=== PATIENT | female | born 1930 | race Caucasian/White ===

== ENCOUNTER 2016-12-18 07:49 | Emergency (ER) | payer MEDICARE, BC ==
--- NOTE | 2016-12-18 08:49 | EDM.PDOC ---
ED HPI GENERAL MEDICAL PROBLEM - General Chief Complaint: General Stated Complaint: BY AMBULANCE Time Seen by Provider: 12/18/16 08:20 Source of Information: Reports: Patient, RN, RN Notes Reviewed History Limitations: Reports: No Limitations - History of Present Illness INITIAL COMMENTS - FREE TEXT/NARRATIVE: Pt presents to ER per [facility] with c/o generalized weakness. She states she was seen in the clinic on Wednesday by Amanda Stubbs NP, and was dx with a UTI, was placed on Levaquin at that time. She states the past few days her arms and legs have felt like "rubber", heavy and weak. She states she had a near fall last night on her way to the bathroom, she states she caught herself and did not have any injuries. She states she has an extensive cardiac hx. She denies fever , chills, N/V, chest pain, or sob. She states she had diarrhea a few days ago, for one day, which has since resolved. Pt states she lives at [facility]. Onset: Gradual Location: Reports: Generalized Severity: Moderate Improves with: Reports: None Worsens with: Reports: None Associated Symptoms: Reports: Weakness - Related Data Allergies Allergy/AdvReac Type Severity Reaction Status Date / Time JUDSON Inhibitors Allergy Anaphylactic Verified 12/18/16 07:57 Shock Home Meds: Home Meds Clopidogrel Bisulfate [Clopidogrel] 75 mg PO DAILY 10/05/15 [History] Imiquimod [[place] 5% Crm] 1 applic TOP DAILY 10/05/15 [History] Insulin Detemir [Levemir Flextouch] 22 units SQ BID 10/05/15 [History] Isosorbide Mononitrate [Imdur] 60 mg PO DAILY 10/05/15 [History] Latanoprost [Xalatan 0.005% Ophth Soln] 2 drop EYEBOTH DAILY 10/05/15 [History] Metoprolol Succinate [Toprol XL 50mg] 50 mg PO DAILY 10/05/15 [History] Simvastatin [Simvastatin] 40 mg PO DAILY 10/05/15 [History] amLODIPine [Norvasc] 5 mg PO DAILY 10/05/15 [History] glipiZIDE [Glipizide Xl] 10 mg PO BID 10/05/15 [History] Aspirin [Kia Chewable] 81 mg PO 12/18/16 [History] Calcium Carbonate/Vitamin D3 [Calcium 250+D] 1 each PO DAILY 12/18/16 [History] Cranberry Extract [Cranberry] 1,000 mg PO DAILY 12/18/16 [History] FA/Vit C/E/Zinc/Copper/Lut/Anup [Ocuvel Capsule] 1 cap PO DAILY 12/18/16 [History ] Fish Oil/[place]-3 Fatty Acids [Fish Oil] 1 each PO 12/18/16 [History] Levofloxacin [Levofloxacin] 250 mg PO DAILY 12/18/16 [History] Triamcinolone Acetonide [Triamcinolone Acetonide 0.1% Crm] 1 gm TOP BID [History] Past Medical History HEENT History: Reports: Glaucoma Cardiovascular History: Reports: High Cholesterol, Hypertension Endocrine/Metabolic History: Reports: Diabetes, Type II Oncologic (Cancer) History: Reports: Basal Cell Carcinoma Dermatologic History: Reports: Other (See Below) - Past Surgical History GI Surgical History: Reports: Appendectomy, Other (See Below) Musculoskeletal Surgical History: Reports: Knee Replacement Social & Family History - Family History Family Medical History: Noncontributory - Tobacco Use Smoking Status *Q: Never Smoker Second Hand Smoke Exposure: No - Caffeine Use Caffeine Use: Reports: None - Recreational Drug Use Recreational Drug Use: No ED ROS GENERAL - Review of Systems Review Of Systems: ROS reveals no pertinent complaints other than HPI. ED EXAM, GENERAL - Physical Exam Exam: See Below Exam Limited By: No Limitations General Appearance: Alert, WD/WN, No Apparent Distress Eye Exam: Bilateral Eye: Normal Inspection Ears: Normal External Exam, Hearing Grossly Normal Nose: Normal Inspection Throat/Mouth: Normal Inspection, Normal Voice, No Airway Compromise Head: Atraumatic, Normocephalic Neck: Normal Inspection, Supple, Non-Tender, Full Range of Motion Respiratory/Chest: No Respiratory Distress, No Accessory Muscle Use, Chest Non- Tender, Crackles (RLL) Cardiovascular: Normal Peripheral Pulses, Regular Rate, Rhythm GI/Abdominal: Normal Bowel Sounds, Soft, Non-Tender, No Organomegaly, No Distention, No Abnormal Bruit, No Mass (Female) Exam: Deferred Rectal (Female) Exam: Deferred Back Exam: Normal Inspection, Full Range of Motion Extremities: Normal Inspection, Normal Range of Motion, Non-Tender, No Pedal Edema, Normal Capillary Refill Neurological: Alert, Oriented, Normal Cognition, No Motor/Sensory Deficits Psychiatric: Normal Affect, Normal Mood Skin Exam: Warm, Dry, Intact, Normal Color, No Rash Lymphatic: No Adenopathy EKG INTERPRETATION EKG Date: 12/18/16 Time: 08:28 Rhythm: NSR (first degree AV block, PVC's) Rate (Beats/Min): 71 [place]: Normal P-Wave: Present QRS: Normal ST-T: Normal QT: Normal Comparison: NA - No Prior EKG Course - Vital Signs Last Recorded V/S: Last Vital Signs Temp 98.1 F 12/18/16 08:00 Pulse 75 12/18/16 08:00 Resp 18 12/18/16 08:00 BP 175/63 H 12/18/16 08:00 Pulse Ox 99 12/18/16 08:00 - Orders/Labs/Meds Orders: Active Orders 24 hr Category Date Time Status Blood Glucose Check, Bedside [RC] ONETIME Care 12/18/16 07:59 Active EKG Documentation Completion [RC] STAT Care 12/18/16 08:25 Active CULTURE URINE [RM] Stat Lab 12/18/16 10:39 Ordered UA W/MICROSCOPIC [URIN] Stat Lab 12/18/16 10:25 Results Labs: Laboratory Tests 12/18/16 12/18/16 12/18/16 Range/Units 08:07 08:27 08:27 WBC 9.4 (5.0-10.0) 10^3/uL RBC 3.42 L (4.2-5.4) 10^6/uL Hgb 10.9 L (12.0-16.0) g/dL Hct 32.5 L (37.0-47.0) % MCV 95.0 (80-100) fL MCH 31.9 (27.0-34.0) pg MCHC 33.5 (33.0-35.0) g/dL Plt Count 256 (150-450) 10^3/uL Neut % (Auto) 64.7 (42.2-75.2) % Lymph % (Auto) 25.7 (20.5-50.1) % [place] % (Auto) 8.5 H (2-8) % Eos % (Auto) 0.7 L (1.0-3.0) % Baso % (Auto) 0.4 (0.0-1.0) % Sodium 139 (135-145) mmol/L Potassium 3.8 (3.6-5.0) mmol/L Chloride 104 (101-111) mmol/L Carbon Dioxide 23.0 (21.0-31.0) mmol/L Anion Gap 15.8 BUN 26 H (7-18) mg/dL Creatinine 1.3 (0.6-1.3) mg/dL Est Cr Clr Drug Dosing TNP Estimated GFR (MDRD) 39 BUN/Creatinine Ratio 20.00 Glucose 162 H (74-105) mg/dL POC Glucose 153 H (83-110) mg/dl Calcium 9.4 (8.4-10.2) mg/dl Total Bilirubin 0.6 (0.2-1.0) mg/dL AST 20 (10-42) IU/L ALT 15 (10-60) IU/L Alkaline Phosphatase 47 (42-121) IU/L Troponin I 0.03 H* (0.00-0.02) ng/ml B-Natriuretic Peptide (0-100) pg/ml Total Protein 7.3 (6.7-8.2) g/dl Albumin 3.7 (3.2-5.5) g/dl Globulin 3.6 Albumin/Globulin Ratio 1.03 Urine Color (YELLOW) Urine Appearance (CLEAR) Urine pH (5.0-9.0) Ur Specific [place] (1.005-1.030) Urine Protein (NEGATIVE) Urine Glucose (UA) (NEGATIVE) Urine Ketones (NEGATIVE) Urine Occult Blood (NEGATIVE) Urine Nitrite (NEGATIVE) Urine Bilirubin (NEGATIVE) Urine Urobilinogen (0.2-1.0) mg/dL Ur Leukocyte Esterase (NEGATIVE) 12/18/16 12/18/16 Range/Units 08:27 10:25 WBC (5.0-10.0) 10^3/uL RBC (4.2-5.4) 10^6/uL Hgb (12.0-16.0) g/dL Hct (37.0-47.0) % MCV (80-100) fL MCH (27.0-34.0) pg MCHC (33.0-35.0) g/dL Plt Count (150-450) 10^3/uL Neut % (Auto) (42.2-75.2) % Lymph % (Auto) (20.5-50.1) % [place] % (Auto) (2-8) % Eos % (Auto) (1.0-3.0) % Baso % (Auto) (0.0-1.0) % Sodium (135-145) mmol/L Potassium (3.6-5.0) mmol/L Chloride (101-111) mmol/L Carbon Dioxide (21.0-31.0) mmol/L Anion Gap BUN (7-18) mg/dL Creatinine (0.6-1.3) mg/dL Est Cr Clr Drug Dosing Estimated GFR (MDRD) BUN/Creatinine Ratio Glucose (74-105) mg/dL POC Glucose (83-110) mg/dl Calcium (8.4-10.2) mg/dl Total Bilirubin (0.2-1.0) mg/dL AST (10-42) IU/L ALT (10-60) IU/L Alkaline Phosphatase (42-121) IU/L Troponin I (0.00-0.02) ng/ml B-Natriuretic Peptide 161 H (0-100) pg/ml Total Protein (6.7-8.2) g/dl Albumin (3.2-5.5) g/dl Globulin Albumin/Globulin Ratio Urine Color Yellow (YELLOW) Urine Appearance Slightly cloudy (CLEAR) Urine pH 5.5 (5.0-9.0) Ur Specific [place] 1.015 (1.005-1.030) Urine Protein 30 H (NEGATIVE) Urine Glucose (UA) Negative (NEGATIVE) Urine Ketones Negative (NEGATIVE) Urine Occult Blood Trace-lysed H (NEGATIVE) Urine Nitrite Negative (NEGATIVE) Urine Bilirubin Negative (NEGATIVE) Urine Urobilinogen 0.2 (0.2-1.0) mg/dL Ur Leukocyte Esterase Moderate H (NEGATIVE) - Radiology Interpretation Free Text/Narrative:: chest xray: No acute findings See rad report Departure - Departure Time of Disposition: 10:50 Disposition: Home, Self-Care 01 Condition: Fair Clinical Impression: UTI, Urinary tract infectious disease, Generalized weakness - Discharge Information Instructions: Urinary Tract Infection, Adult, [id number], Weakness, Easy-to- Read Forms: ED Department Discharge Additional Instructions: Follow up with Amanda Stubbs, or at your Primary care facility on Wednesday, possibly may need to follow up with cardiology. Rest STOP taking the Levaquin Augmentin 500mg orally twice daily for 10 days. Drink plenty of water. - My Orders Last 24 Hours: My Active Orders 12/18/16 07:59 Blood Glucose Check, Bedside [RC] ONETIME 12/18/16 08:25 EKG Documentation Completion [RC] STAT 12/18/16 10:25 UA W/MICROSCOPIC [URIN] Stat 12/18/16 10:39 CULTURE URINE [RM] Stat - Assessment/Plan Last 24 Hours: My Active Orders 12/18/16 07:59 Blood Glucose Check, Bedside [RC] ONETIME 12/18/16 08:25 EKG Documentation Completion [RC] STAT 12/18/16 10:25 UA W/MICROSCOPIC [URIN] Stat 12/18/16 10:39 CULTURE URINE [RM] Stat
[2016-12-18 08:55] LABS: CHLORIDE,CL 104 mmol/L (101-111); SODIUM,NA 139 mmol/L (135-145)
[2016-12-18 09:17] VITALS: BP 175/63
--- NOTE | 2016-12-18 09:48 | CR ---
Clinical history: 86-year-old female with generalized weakness. Interpretation: Osteopenia and dorsolumbar scoliosis. Calcifications arch of the aorta. Normal cardiac silhouette without cephalization of vascular flow, signs of alveolar edema or dependen t pleural fluid accumulation (old pleural scarring posteriorly left base). No lung mass or hilar lymphadenopathy. No focal lobar pneumonia. No atelectasis/collapse. No pneumothorax. CONCLUSION: No acute cardiopulmonary abnormality.
--- NOTE | 2016-12-21 08:56 | EKG ---
12/18/2016- REJI LINDSAY - A 12-lead EKG shows normal sinus rhythm with a first-degree AV block and ventricular premature complex, AL interval of 264, QTc 448. No significant ST elevation or ST depression noted on this 12-lead EKG. [facility] /[id number]
== END 2016-12-18 11:19 | disposition home or self-care (01) ==
LOC: DL.ED 07:49
DX: N39.0 Urinary tract infection, site not specified (principal); I10 Essential (primary) hypertension; E11.9 Type 2 diabetes mellitus without complications; Z79.4 Long term (current) use of insulin; Z79.899 Other long term (current) drug therapy; Z79.82 Long term (current) use of aspirin
CPT/HCPCS: 36415; 71020; 80053; 81001; 82962; 83880; 84484; 85025; 87086; 93005; 93010; 99284; 99285

== ENCOUNTER 2016-12-24 10:23 | Observation (INO) | payer MEDICARE, BC ==
--- NOTE | 2016-12-24 11:04 | CR ---
Clinical history: 86-year-old female chest pain. Interpretation: Chronic rotator cuff damage right shoulder and severe arthritic changes, clavicular and glenohumeral joints both shoulders. Scoliosis multilevel disc disease and chronic arthritic changes of the spine. No acute cardiopulmonary abnormality (calcification arch of the aorta). Normal cardiac silhouette without cephalization of vascular flow, signs of alveolar edema or dependen t pleural effusion. No new lung mass, hilar lymphadenopathy or focal lobar pneumonia since 18 December chest film. No atelectasis/collapse. No pneumothorax. CONCLUSION: No acute cardiopulmonary abnormality.
--- NOTE | 2016-12-24 11:19 | EDM.PDOC ---
ED HPI GENERAL MEDICAL PROBLEM - General Chief Complaint: General Stated Complaint: CAN'T STAND ON LEGS Time Seen by Provider: 12/24/16 10:45 Source of Information: Reports: Patient, Family, RN, RN Notes Reviewed History Limitations: Reports: No Limitations - History of Present Illness INITIAL COMMENTS - FREE TEXT/NARRATIVE: Pt presents to the ER with a family member stating that she can no longer be in her assistive living alone. She states that she has progressively gotten weaker over time. Her family member states that she came to help her some and she is also unable to help her and get her to the bathroom. She states they have begun the process to put her into the [facility] in [place]. Onset: Gradual Duration: Chronic, Getting Worse Location: Reports: Other (generalized weakness) Severity: Moderate Associated Symptoms: Reports: Weakness - Related Data Allergies Allergy/AdvReac Type Severity Reaction Status Date / Time JUDSON Inhibitors Allergy Anaphylactic Verified 12/24/16 13:15 Shock Home Meds: Home Meds Insulin Detemir [Levemir Flextouch] 22 units SQ BID 10/05/15 [History] Isosorbide Mononitrate [Imdur] 60 mg PO DAILY 10/05/15 [History] Latanoprost [Xalatan 0.005% Ophth Soln] 1 drop EYEBOTH DAILY 10/05/15 [History] Metoprolol Succinate [Toprol XL 50mg] 50 mg PO DAILY 10/05/15 [History] amLODIPine [Norvasc] 5 mg PO DAILY 10/05/15 [History] glipiZIDE [Glipizide Xl] 10 mg PO BIDMEALS 10/05/15 [History] Aspirin [Kia Chewable] 81 mg PO DAILY 12/18/16 [History] Calcium Carbonate/Vitamin D3 [Calcium 250+D] 2 tab PO BIDMEALS 12/18/16 [History ] Cranberry Extract [Cranberry] 500 mg PO BIDMEALS 12/18/16 [History] FA/Vit C/E/Zinc/Copper/Lut/Anup [Ocuvel Capsule] 1 cap PO DAILY 12/18/16 [History ] Triamcinolone Acetonide [Triamcinolone Acetonide 0.1% Crm] 1 gm TOP DAILY [History] Past Medical History HEENT History: Reports: Glaucoma Cardiovascular History: Reports: High Cholesterol, Hypertension Musculoskeletal History: Reports: Arthritis Endocrine/Metabolic History: Reports: Diabetes, Type II Oncologic (Cancer) History: Reports: Basal Cell Carcinoma Dermatologic History: Reports: Other (See Below) - Past Surgical History GI Surgical History: Reports: Appendectomy Musculoskeletal Surgical History: Reports: Knee Replacement Social & Family History - Family History Family Medical History: Noncontributory - Tobacco Use Smoking Status *Q: Never Smoker Second Hand Smoke Exposure: No - Caffeine Use Caffeine Use: Reports: None - Recreational Drug Use Recreational Drug Use: No ED ROS GENERAL - Review of Systems Review Of Systems: ROS reveals no pertinent complaints other than HPI. ED EXAM, GENERAL - Physical Exam Exam: See Below Exam Limited By: No Limitations General Appearance: Alert, WD/WN, No Apparent Distress Eye Exam: Bilateral Eye: Normal Inspection Ears: Normal External Exam, Hearing Grossly Normal Nose: Normal Inspection Throat/Mouth: Normal Inspection, Normal Voice, No Airway Compromise Head: Atraumatic, Normocephalic Neck: Normal Inspection, Supple, Non-Tender, Full Range of Motion Respiratory/Chest: No Respiratory Distress, Lungs Clear, Normal Breath Sounds, No Accessory Muscle Use, Chest Non-Tender Cardiovascular: Normal Peripheral Pulses, Irregularly Irregular Peripheral Pulses: 2+: Radial (L), Radial (R) GI/Abdominal: Normal Bowel Sounds, Soft, Non-Tender (Female) Exam: Deferred Rectal (Female) Exam: Deferred Back Exam: Normal Inspection, Full Range of Motion Extremities: Normal Inspection, No Pedal Edema, Limited Range of Motion Neurological: Alert, Oriented, Normal Cognition. No: Normal Gait Psychiatric: Normal Affect, Normal Mood Skin Exam: Warm, Dry, Intact, Normal Color Lymphatic: No Adenopathy EKG INTERPRETATION EKG Date: 12/24/16 Time: 10:45 Rhythm: Other (Sinus rhythm with first degree AV block, LBBB) Rate (Beats/Min): 70 Comparison: No Change Course - Vital Signs Last Recorded V/S: Last Vital Signs Temp 97.9 F 12/25/16 07:00 Pulse 63 12/25/16 08:35 Resp 18 12/25/16 07:00 BP 142/42 H 12/25/16 08:35 Pulse Ox 99 12/25/16 07:00 - Orders/Labs/Meds Orders: Medication Orders Acetaminophen (Tylenol) 650 mg PO Q4H PRN PRN Reason: Pain (Mild 1-3)/fever Amoxicillin/Clavulanate Potassium (Augmentin 875 Mg/125 Mg) 1 tab PO Q12HR [facility] Docusate Sodium (Colace) 100 mg PO BID PRN PRN Reason: Constipation Fluticasone Propionate (Flonase) 0.3 gm NASBOTH DAILY [facility] Glipizide (Glucotrol Xl) 5 mg PO BIDMEALS [facility] Last Admin: 12/25/16 08:36 Dose: 5 mg Admin: 12/24/16 18:26 Dose: 5 mg Insulin Aspart (Novolog) 0 unit SUBCUT QIDACANDBED [facility] PRN Reason: Protocol Last Admin: 12/25/16 08:32 Dose: Not Given Admin: 12/24/16 21:45 Dose: 1 units Admin: 12/24/16 18:26 Dose: 2 units Insulin Detemir (Levemir) 22 unit SUBCUT BID [facility] Last Admin: 12/25/16 08:36 Dose: 22 units Admin: 12/24/16 21:42 Dose: 22 units Isosorbide Mononitrate (Imdur) 60 mg PO DAILY [facility] Last Admin: 12/25/16 08:36 Dose: 60 mg Latanoprost (Xalatan 0.005% Oph Soln) 0 ml EYEBOTH DAILY [facility] Last Admin: 12/25/16 08:36 Dose: 1 drop Metoprolol Succinate (Toprol Xl) 50 mg PO DAILY [facility] Last Admin: 12/25/16 08:35 Dose: 50 mg Multivitamins/Minerals (I-Lanre) 1 each PO DAILY [facility] Last Admin: 12/25/16 08:35 Dose: 1 each Ondansetron HCl (Zofran Odt) 4 mg PO Q6H PRN PRN Reason: nausea, able to take PO Polyethylene Glycol (Miralax) 17 gm PO DAILY PRN PRN Reason: Constipation Labs: Laboratory Tests 12/24/16 12/24/16 12/24/16 Range/Units 09:22 09:22 10:38 WBC 9.3 (5.0-10.0) 10^3/uL RBC 3.42 L (4.2-5.4) 10^6/uL Hgb 10.8 L (12.0-16.0) g/dL Hct 32.9 L (37.0-47.0) % MCV 96.2 (80-100) fL MCH 31.6 (27.0-34.0) pg MCHC 32.8 L (33.0-35.0) g/dL Plt Count 269 (150-450) 10^3/uL Neut % (Auto) 67.2 (42.2-75.2) % Lymph % (Auto) 23.6 (20.5-50.1) % [place] % (Auto) 8.0 (2-8) % Eos % (Auto) 0.8 L (1.0-3.0) % Baso % (Auto) 0.4 (0.0-1.0) % Percent Retic (0.5-1.5) % Sodium (135-145) mmol/L Potassium (3.6-5.0) mmol/L Chloride (101-111) mmol/L Carbon Dioxide (21.0-31.0) mmol/L Anion Gap BUN (7-18) mg/dL Creatinine (0.6-1.3) mg/dL Est Cr Clr Drug Dosing mL/min Estimated GFR (MDRD) BUN/Creatinine Ratio Glucose (74-105) mg/dL Calcium (8.4-10.2) mg/dl Phosphorus 3.8 (2.5-4.6) mg/dL Magnesium 2.0 (1.8-2.5) mg/dL Total Bilirubin (0.2-1.0) mg/dL AST (10-42) IU/L ALT (10-60) IU/L Alkaline Phosphatase (42-121) IU/L Troponin I (0.00-0.02) ng/ml B-Natriuretic Peptide (0-100) pg/ml Total Protein (6.7-8.2) g/dl Albumin (3.2-5.5) g/dl Globulin Albumin/Globulin Ratio Vitamin B12 (180-914) pg/mL Folate ng/mL Urine Color (YELLOW) Urine Appearance (CLEAR) Urine pH (5.0-9.0) Ur Specific [place] (1.005-1.030) Urine Protein (NEGATIVE) Urine Glucose (UA) (NEGATIVE) Urine Ketones (NEGATIVE) Urine Occult Blood (NEGATIVE) Urine Nitrite (NEGATIVE) Urine Bilirubin (NEGATIVE) Urine Urobilinogen (0.2-1.0) mg/dL Ur Leukocyte Esterase (NEGATIVE) Urine RBC /HPF Urine WBC (0-5/HPF) /HPF Ur Epithelial Cells /HPF Urine Bacteria (0-FEW/HPF) /HPF Hyaline Casts /LPF Urine Mucus /LPF 12/24/16 12/24/16 12/24/16 Range/Units 10:38 10:38 10:38 WBC (5.0-10.0) 10^3/uL RBC (4.2-5.4) 10^6/uL Hgb (12.0-16.0) g/dL Hct (37.0-47.0) % MCV (80-100) fL MCH (27.0-34.0) pg MCHC (33.0-35.0) g/dL Plt Count (150-450) 10^3/uL Neut % (Auto) (42.2-75.2) % Lymph % (Auto) (20.5-50.1) % [place] % (Auto) (2-8) % Eos % (Auto) (1.0-3.0) % Baso % (Auto) (0.0-1.0) % Percent Retic 2 H (0.5-1.5) % Sodium 136 (135-145) mmol/L Potassium 4.2 (3.6-5.0) mmol/L Chloride 102 (101-111) mmol/L Carbon Dioxide 24.0 (21.0-31.0) mmol/L Anion Gap 14.2 BUN 27 H (7-18) mg/dL Creatinine 1.3 (0.6-1.3) mg/dL Est Cr Clr Drug Dosing 27.82 mL/min Estimated GFR (MDRD) 39 BUN/Creatinine Ratio 20.76 Glucose 191 H (74-105) mg/dL Calcium 10.0 (8.4-10.2) mg/dl Phosphorus (2.5-4.6) mg/dL Magnesium (1.8-2.5) mg/dL Total Bilirubin 0.7 (0.2-1.0) mg/dL AST 24 (10-42) IU/L ALT 21 (10-60) IU/L Alkaline Phosphatase 46 (42-121) IU/L Troponin I 0.03 H* (0.00-0.02) ng/ml B-Natriuretic Peptide 176 H (0-100) pg/ml Total Protein 7.4 (6.7-8.2) g/dl Albumin 3.8 (3.2-5.5) g/dl Globulin 3.6 Albumin/Globulin Ratio 1.06 Vitamin B12 207 (180-914) pg/mL Folate ng/mL Urine Color (YELLOW) Urine Appearance (CLEAR) Urine pH (5.0-9.0) Ur Specific [place] (1.005-1.030) Urine Protein (NEGATIVE) Urine Glucose (UA) (NEGATIVE) Urine Ketones (NEGATIVE) Urine Occult Blood (NEGATIVE) Urine Nitrite (NEGATIVE) Urine Bilirubin (NEGATIVE) Urine Urobilinogen (0.2-1.0) mg/dL Ur Leukocyte Esterase (NEGATIVE) Urine RBC /HPF Urine WBC (0-5/HPF) /HPF Ur Epithelial Cells /HPF Urine Bacteria (0-FEW/HPF) /HPF Hyaline Casts /LPF Urine Mucus /LPF 12/24/16 12/24/16 Range/Units 10:38 11:59 WBC (5.0-10.0) 10^3/uL RBC (4.2-5.4) 10^6/uL Hgb (12.0-16.0) g/dL Hct (37.0-47.0) % MCV (80-100) fL MCH (27.0-34.0) pg MCHC (33.0-35.0) g/dL Plt Count (150-450) 10^3/uL Neut % (Auto) (42.2-75.2) % Lymph % (Auto) (20.5-50.1) % Cross % (Auto) (2-8) % Eos % (Auto) (1.0-3.0) % Baso % (Auto) (0.0-1.0) % Percent Retic (0.5-1.5) % Sodium (135-145) mmol/L Potassium (3.6-5.0) mmol/L Chloride (101-111) mmol/L Carbon Dioxide (21.0-31.0) mmol/L Anion Gap BUN (7-18) mg/dL Creatinine (0.6-1.3) mg/dL Est Cr Clr Drug Dosing mL/min Estimated GFR (MDRD) BUN/Creatinine Ratio Glucose (74-105) mg/dL Calcium (8.4-10.2) mg/dl Phosphorus (2.5-4.6) mg/dL Magnesium (1.8-2.5) mg/dL Total Bilirubin (0.2-1.0) mg/dL AST (10-42) IU/L ALT (10-60) IU/L Alkaline Phosphatase (42-121) IU/L Troponin I (0.00-0.02) ng/ml B-Natriuretic Peptide (0-100) pg/ml Total Protein (6.7-8.2) g/dl Albumin (3.2-5.5) g/dl Globulin Albumin/Globulin Ratio Vitamin B12 (180-914) pg/mL Folate >22.0 ng/mL Urine Color Yellow (YELLOW) Urine Appearance Clear (CLEAR) Urine pH 5.5 (5.0-9.0) Ur Specific [place] 1.015 (1.005-1.030) Urine Protein Negative (NEGATIVE) Urine Glucose (UA) Negative (NEGATIVE) Urine Ketones Negative (NEGATIVE) Urine Occult Blood Negative (NEGATIVE) Urine Nitrite Negative (NEGATIVE) Urine Bilirubin Negative (NEGATIVE) Urine Urobilinogen 0.2 (0.2-1.0) mg/dL Ur Leukocyte Esterase Small H (NEGATIVE) Urine RBC 0-5 /HPF Urine WBC 5-10 H (0-5/HPF) /HPF Ur Epithelial Cells Moderate H /HPF Urine Bacteria Few (0-FEW/HPF) /HPF Hyaline Casts See note /LPF Urine Mucus Moderate H /LPF Meds: Medications Generic Name Dose Route Start Last Admin Trade Name Freq PRN Reason Stop Dose Admin Acetaminophen 650 mg 12/24/16 12:53 Tylenol PO Q4H PRN Pain (Mild 1-3)/fever Amoxicillin/Clavulanate Potassium 1 tab 12/25/16 09:02 Augmentin 875 Mg/125 Mg PO Q12HR [facility] Docusate Sodium 100 mg 12/24/16 12:53 Colace PO BID PRN Constipation Fluticasone Propionate 0.3 gm 12/25/16 09:15 Flonase NASBOTH DAILY [facility] Glipizide 5 mg 12/24/16 18:00 12/25/16 08:36 Glucotrol Xl PO 5 mg BIDMEALS [facility] Administration Insulin Aspart 0 unit 12/24/16 17:00 12/25/16 08:32 Novolog SUBCUT Not Given QIDACANDBED [facility] Protocol Insulin Detemir 22 unit 12/24/16 21:00 12/25/16 08:36 Levemir SUBCUT 22 units BID [facility] Administration Isosorbide Mononitrate 60 mg 12/25/16 09:00 12/25/16 08:36 Imdur PO 60 mg DAILY [facility] Administration Latanoprost 0 ml 12/25/16 09:00 12/25/16 08:36 Xalatan 0.005% Ophth Soln EYEBOTH 1 drop DAILY [facility] Administration Metoprolol Succinate 50 mg 12/25/16 09:00 12/25/16 08:35 Toprol Xl PO 50 mg DAILY [facility] Administration Multivitamins/Minerals 1 each 12/25/16 09:00 12/25/16 08:35 I-Lanre PO 1 each DAILY [facility] Administration Ondansetron HCl 4 mg 12/24/16 12:53 Zofran Odt PO Q6H PRN nausea, able to take PO Polyethylene Glycol 17 gm 12/24/16 12:53 Miralax PO DAILY PRN Constipation Discontinued Medications Generic Name Dose Route Start Last Admin Trade Name Freq PRN Reason Stop Dose Admin Non-Formulary Medication 1 each 12/25/16 09:00 Fish Oil/[place]-3 Fatty Acids [Fish Oil 1,000 Mg] PO DAILY [facility] Triamcinolone Acetonide 0 gm 12/24/16 21:00 Triamcinolone Acetonide 0.1% Crm TOP BID [facility] - Radiology Interpretation Free Text/Narrative:: chest x-ray: No acute findings See rad report Departure - Departure Time of Disposition: 12:39 Disposition: Refer to Observation Condition: Fair Clinical Impression: Hyperglycemia, CHF, Congestive heart failure, Generalized weakness - Discharge Information
[2016-12-24] MEDS ORDERED: Docusate Sodium 100 MG Cap PO PRN (12:53)
[2016-12-24] MEDS ORDERED: Ondansetron 4 MG Tab.DIS PO PRN (12:53)
[2016-12-24] MEDS ORDERED: Acetaminophen 325 MG Tab PO PRN (12:53)
[2016-12-24] MEDS ORDERED: Polyethylene Glycol 3350 Powder 17 GM Packet PO PRN (12:53)
--- NOTE | 2016-12-24 13:11 | PCM.HP ---
H&P History of Present Illness - General Date of Service: 12/24/16 Admit Problem/Dx: Admission Diagnosis/Problem Admission Diagnosis/Problem Weakness Source of Information: Patient - History of Present Illness Initial Comments - Free Text/Narative: 86-year-old female with history of diabetes mellitus, congestive heart failure, urinary tract infection, generalized weakness presented to the emergency room with her daughter for worsening of the generalized weakness and mostly in lower extremities. Patient stated that for the last 10 days her lower extremities weakness has been progressively getting worse. She fail at home 4 times in the last 6 days. She denies hitting her head. She says usually she gets per week at night where her legs cannot hold her up so she feels slowly to the floor. She denied hitting her head. However she had some old bruises on the left posterior shoulder and left posterior chest wall. Patient denies headache, change in vision, upper respiratory symptoms, chest pain, shortness breath, cough, abdominal pain, nausea, vomiting, fever, chills, diarrhea, dysuria, urinary frequency, difficulty urinating or defecating, any other symptoms or concern. Patient was seen in emergency room on 12/18/16 for similar complaint also seen by her primary care provider recently and she wants to go to detention. However daughter does not feel that patient safe to stay at home and she doesn' t think she can take care of her mother. In the emergency room her hemoglobin is 10.8. CMP is unremarkable. Troponin is 0.03 which is similar to where it was 1 week ago. Magnesium and phosphorus are normal. UA is unremarkable - Related Data Allergies/Adverse Reactions: Allergies Allergy/AdvReac Type Severity Reaction Status Date / Time JUDSON Inhibitors Allergy Anaphylactic Verified 12/24/16 13:15 Shock Home Medications: Home Meds Clopidogrel Bisulfate [Clopidogrel] 75 mg PO DAILY 10/05/15 [History] Insulin Detemir [Levemir Flextouch] 22 units SQ BID 10/05/15 [History] Isosorbide Mononitrate [Imdur] 60 mg PO DAILY 10/05/15 [History] Latanoprost [Xalatan 0.005% Ophth Soln] 2 drop EYEBOTH DAILY 10/05/15 [History] Metoprolol Succinate [Toprol XL 50mg] 50 mg PO DAILY 10/05/15 [History] amLODIPine [Norvasc] 5 mg PO DAILY 10/05/15 [History] glipiZIDE [Glipizide Xl] 10 mg PO BID 10/05/15 [History] Aspirin [Kia Chewable] 81 mg PO 12/18/16 [History] Calcium Carbonate/Vitamin D3 [Calcium 250+D] 1 each PO DAILY 12/18/16 [History] Cranberry Extract [Cranberry] 1,000 mg PO DAILY 12/18/16 [History] FA/Vit C/E/Zinc/Copper/Lut/Anup [Ocuvel Capsule] 1 cap PO DAILY 12/18/16 [History ] Fish Oil/Xenia-3 Fatty Acids [Fish Oil] 1 each PO 12/18/16 [History] Triamcinolone Acetonide [Triamcinolone Acetonide 0.1% Crm] 1 gm TOP BID [History] Past Medical History HEENT History: Reports: Glaucoma Cardiovascular History: Reports: High Cholesterol, Hypertension Musculoskeletal History: Reports: Arthritis Endocrine/Metabolic History: Reports: Diabetes, Type II Oncologic (Cancer) History: Reports: Basal Cell Carcinoma Dermatologic History: Reports: Other (See Below) - Past Surgical History GI Surgical History: Reports: Appendectomy Musculoskeletal Surgical History: Reports: Knee Replacement Social & Family History - Family History Family Medical History: Noncontributory - Tobacco Use Smoking Status *Q: Never Smoker Second Hand Smoke Exposure: No - Caffeine Use Caffeine Use: Reports: None - Recreational Drug Use Recreational Drug Use: No H&P Review of Systems - Review of Systems: Review Of Systems: ROS reveals no pertinent complaints other than HPI. Exam - Exam Exam: See Below - Vital Signs Vital Signs: Last Vital Signs Temp 37.1 C 12/24/16 12:02 Pulse 68 12/24/16 12:02 Resp 18 12/24/16 12:02 BP 150/51 H 12/24/16 12:02 Pulse Ox 100 12/24/16 12:02 Weight: 70.307 kg - Exam General: Alert, Oriented, Cooperative, Other (Patient looks frail). No: Mild Distress, Moderate Distress, Severe Distress, Sedated, Lethargic, Obtunded HEENT: Conjunctiva Clear, EACs Clear, EOMI, Hearing Intact, Mucosa Moist & [place] , Nares Patent, Normal Nasal Septum, Posterior Pharynx Clear, Pupils Equal, Pupils Reactive, TMs Clear Neck: Supple, Trachea Midline Lungs: Clear to Auscultation, Normal Respiratory Effort. No: Crackles, Rales, Rhonchi, Rub, Stridor, Wheezing Cardiovascular: Regular Rate, Regular Rhythm GI/Abdominal Exam: Normal Bowel Sounds, Soft, Non-Tender, No Organomegaly, No Distention, No Abnormal Bruit, No Mass (Female) Exam: Deferred Rectal (Female) Exam: Deferred Back Exam: Normal Inspection, Full Range of Motion, Vertebral Tenderness. No: CVA Tenderness (L), CVA Tenderness (R) Extremities: Normal Inspection, Normal Range of Motion, Non-Tender, No Pedal Edema, Normal Capillary Refill, Other (Patient is somewhat weak to resistance in all extremities, symmetrically) Skin: Dry, Intact. No: Rash Neurological: Cranial Nerves Intact, Strength Equal Bilateral, Normal Speech Neuro Extensive - Mental Status: Alert, Oriented x3, Normal Mood/Affect, Normal Cognition, Memory Intact Neuro Extensive - Motor, Sensory, Reflexes: CN II-XII Intact Psychiatric: Alert, Normal Affect, Normal Mood - Patient Data Result Diagrams: 12/24/16 10:38 12/24/16 10:38 *Q Meaningful Use (ADM) - VTE *Q VTE Criteria *Q: - Stroke *Q Stroke Criteria *Q: - AMI *Q AMI Criteria *Q: - Problem List (1) Diabetes mellitus type 2 in obese SNOMED Code(s): 05561696 ICD Code: E11.69 - TYPE 2 DIABETES MELLITUS WITH OTHER SPECIFIED COMPLICATION ; E66.9 - OBESITY, UNSPECIFIED Status: Chronic Current Visit: Yes (2) CHF, Congestive heart failure SNOMED Code(s): 23625386 ICD Code: I50.9 - HEART FAILURE, UNSPECIFIED Status: Chronic Current Visit: Yes (3) Generalized weakness SNOMED Code(s): 17231274 ICD Code: R53.1 - WEAKNESS Status: Chronic Current Visit: Yes Problem List Initiated/Reviewed/Updated: Yes Orders Last 24hrs: Active Orders 24 hr Category Date Time Status Patient Status [ADT] Routine ADT 12/24/16 12:53 Active Antiembolic Devices [RC] PER UNIT ROUTINE Care 12/24/16 12:56 Active Blood Glucose Check, Bedside [RC] QIDACANDBED Care 12/24/16 12:53 Active Height and Weight [RC] DAILY Care 12/24/16 12:53 Active Intake and Output [RC] QSHIFT Care 12/24/16 12:54 Active Notify Provider Vital Signs [RC] ASDIRECTED Care 12/24/16 12:54 Active Oxygen Therapy [RC] PRN Care 12/24/16 12:53 Active Up With Assistance [RC] ASDIRECTED Care 12/24/16 12:53 Active Up ad Bernice [RC] ASDIRECTED Care 12/24/16 12:53 Active VTE/DVT Education [RC] PER UNIT ROUTINE Care 12/24/16 12:53 Active Vital Signs [RC] Q4H Care 12/24/16 12:53 Active Consult to Occupational Therapy [OT Evaluation and Cons 12/24/16 12:58 Active Treatment] [CONS] Routine Consult to Physical Therapy [PT Evaluation and Cons 12/24/16 12:58 Active Treatment] [CONS] Routine Consult to Public Policy Coordinator [CONS] Routine Cons 12/24/16 12:59 Active Consistent Carbohydrate Diet [DIET] Diet 12/24/16 Breakfast Active Cervical Spine 2V or 3V [CR] Routine Exams 12/25/16 06:00 Ordered Lumbar Spine 2 or 3V [CR] Routine Exams 12/25/16 06:00 Ordered Thoracic Spine 2V [CR] Routine Exams 12/25/16 06:00 Ordered CULTURE URINE [RM] Routine Lab 12/24/16 12:53 Ordered Acetaminophen [Tylenol] Med 12/24/16 12:53 Ordered 650 mg PO Q4H PRN Docusate Sodium [Colace] Med 12/24/16 12:53 Ordered 100 mg PO BID PRN FA/Vit C/E/Zinc/Copper/Lut/Anup [Ocuvel Capsule] Med 12/25/16 09:00 Ordered 1 cap PO DAILY Fish Oil/Xenia-3 Fatty Acids [Fish Oil 1,000 MG] Med 12/25/16 09:00 Ordered 1 each PO DAILY Insulin Aspart [NovoLOG] Med 12/24/16 17:00 Ordered See Protocol SUBCUT QIDACANDBED Insulin Detemir [Levemir] Med 12/24/16 21:00 Ordered 22 unit SUBCUT BID Isosorbide Mononitrate [Imdur] Med 12/25/16 09:00 Ordered 60 mg PO DAILY Latanoprost [Xalatan 0.005% [facility] Soln] Med 12/25/16 09:00 Ordered 2 drop EYEBOTH DAILY Metoprolol Succinate [Toprol XL] Med 12/25/16 09:00 Ordered 50 mg PO DAILY Ondansetron [Zofran ODT] Med 12/24/16 12:53 Ordered 4 mg PO Q6H PRN Polyethylene Glycol 3350 [MiraLAX] Med 12/24/16 12:53 Ordered 17 gm PO DAILY PRN Triamcinolone Acetonide [Triamcinolone Acetonide 0.1% Med 12/24/16 21:00 Ordered Crm] 1 gm TOP BID glipiZIDE [Glipizide Xl] Med 12/24/16 21:00 Ordered 10 mg PO BID Antiembolic Hose [OM.PC] Per Unit Routine Oth 12/24/16 12:55 Ordered Sequential Compression Device [OM.PC] Per Unit Routine Oth 12/24/16 12:55 Ordered Resuscitation Status Routine Resus Stat 12/24/16 12:53 Ordered Medication Orders Acetaminophen (Tylenol) 650 mg PO Q4H PRN PRN Reason: Pain (Mild 1-3)/fever Docusate Sodium (Colace) 100 mg PO BID PRN PRN Reason: Constipation Insulin Aspart (Novolog) 0 unit SUBCUT QIDACANDBED [facility] PRN Reason: Protocol Insulin Detemir (Levemir) 22 unit SUBCUT BID [facility] Isosorbide Mononitrate (Imdur) 60 mg PO DAILY [facility] Latanoprost (Xalatan 0.005% Ophth Soln) ml EYEBOTH DAILY [facility] Metoprolol Succinate (Toprol Xl) 50 mg PO DAILY [facility] Non-Formulary Medication (Fa/Vit C/E/Zinc/Copper/Lut/Anup [Ocuvel Capsule]) 1 cap PO DAILY [facility] Non-Formulary Medication (Fish Oil/Xenia-3 Fatty Acids [Fish Oil 1,000 Mg]) 1 each PO DAILY [facility] Non-Formulary Medication (Glipizide [Glipizide Xl]) 10 mg PO BID [facility] Ondansetron HCl (Zofran Odt) 4 mg PO Q6H PRN PRN Reason: nausea, able to take PO Polyethylene Glycol (Miralax) 17 gm PO DAILY PRN PRN Reason: Constipation Triamcinolone Acetonide (Triamcinolone Acetonide 0.1% Crm) 1 gm TOP BID [facility] Assessment/Plan Comment:: 86-year-old female who came for generalized weakness with the falls at home. She lives in assisted living but she does not think she has enough care that would make her feel safe at home. Her daughter states she is not able to help her by herself. Generalized weakness Consult PT and OT -Ordered cervical, thoracic, lumbar spine x-rays -Urine culture ordered Falls at home Consult PT and OT -Ordered cervical, thoracic, lumbar spine x-rays -Urine culture ordered Diabetes mellitus type 2 Continue Levemir 22 units twice a day Continue glipizide 10 mg twice a day Sliding-scale insulin, low-dose regimen History of congestive heart failure Stable Continue metoprolol succinate ANNELIESE miller and SCDs for DVT prophylaxis Patient and daughter requested DNR for CODE STATUS
--- NOTE | 2016-12-24 15:45 | CR ---
Clinical history: 86-year-old female with "extremity weakness". Interpretation: Abnormal. AP, lateral cervical spine films demonstrate reactive atlantoaxial sclerosis; mild anterolisthesis C2 and C4 vertebral bodies; multilevel lower cervical disc disease i.e. interspace narrowing with hyper trophic marginal spondylosis C5-6 C6-7 levels; and, extensive reactive facet joint sclerosis C3, C4, C5 and C6 levels. No sign of prevertebral soft tissue swelling, acute cervical fracture or other dislocation. No pathol ogic skeletal lesions. No sign of cervical rib anomalies. Lung apices clear. (Multilevel upper thoracic disc disease and hypertrophic arthritic changes of the dorsal spine) CONCLUSION: Ligamentous instability, multilevel lower cervical disc disease and chronic severe reacti ve arthritic changes.
--- NOTE | 2016-12-24 15:47 | CR ---
Clinical history: 86-year-old female extremity weakness. Interpretation: *Levorotoscoliosis and signs of multilevel mid lumbar disc disease i.e. loss of joint spacing, dense bony eburnation/endplate sclerosis, gas in the nucleus pulposus and hypertrophic teresa inal spondylosis. No sign of pathologic skeletal lesion, lumbar fracture or spondylolisthesis. Symmetric spacing normal-appearing SI and hip joints. Dense calcifications normal caliber aortoiliac vessels. No abdominal soft tissue mass or signs of mec hanical bowel obstruction. No free intraperitoneal air. Lung bases clear.
--- NOTE | 2016-12-24 15:53 | CR ---
Clinical history: 86-year-old female pain and extremity weakness. Interpretation: AP, lateral thoracic spine films demonstrate osteopenia and scoliosis. Hypertrophic marginal spondylosis present at nearly all levels and there is definite interspace narro wing upper thoracic spine. No sign of pathologic skeletal lesion, paraspinal soft tissue mass or hematoma, thoracic fracture or spondylolisthesis. Posterior ribs unremarkable. Normal cardiac silhouette and mediastinal width. CONCLUSION: Scoliosis, disc disease and hypertrophic spondylosis osteopenic dorsal spine. No fracture s.
[2016-12-24] MEDS: glipiZIDE 5 MG Tab.ER PO SCH (18:26)
[2016-12-24] MEDS: Insulin Aspart 100 Units/ML 3 ML Pen SUBCUT SCH ×2 (18:26→21:45)
[2016-12-24] MEDS ORDERED: Triamcinolone Acetonide 0.1% Crm 15 GM Tube TOP SCH (21:00)
[2016-12-24] MEDS: Insulin Detemir 100 Units/ML 3 ML Pen SUBCUT SCH (21:42)
--- NOTE | 2016-12-25 08:11 | PCM.PN ---
- General Info Date of Service: 12/25/16 Admission Dx/Problem (Free Text): Admission Diagnosis/Problem Admission Diagnosis/Problem Weakness Subjective Update: Patient stated that she is feeling the same. She denies any new symptoms. She admitted that she was feeling unbalanced at home medication to feeling weak in all extremities which made her fall and not able to take care of herself. She denies weakness and one-sided sodium more than the other. However patient stated that the nurse at night thoughts she is weaker on the left side. However on my exam I did not appreciated that. In fact she appears somewhat to be slightly weaker (questionable) in right arm. Overall her extremities are weak to resist. Patient denies fever, chills, nausea, vomiting, chest pain, shortness breath, abdominal pain, blood in stool, black stool, any other symptoms or concerns. - Patient Data Vitals - Most Recent: Last Vital Signs Temp 36.6 C 12/25/16 07:00 Pulse 63 12/25/16 07:00 Resp 18 12/25/16 07:00 BP 142/42 H 12/25/16 07:00 Pulse Ox 99 12/25/16 07:00 Weight - Most Recent: 71.123 kg I&O - Last 24 Hours: Intake & Output 12/24/16 12/25/16 12/25/16 22:59 06:59 14:59 Intake Total 890 850 Output Total 200 1000 Balance 690 -150 Lab Results Last 24 Hours: Laboratory Results - last 24 hr 12/24/16 12/24/16 Range/Units 17:05 21:01 POC Glucose 203 H 162 H (83-110) mg/dl Med Orders - Current: Current Medications Acetaminophen (Tylenol) 650 mg PO Q4H PRN PRN Reason: Pain (Mild 1-3)/fever Docusate Sodium (Colace) 100 mg PO BID PRN PRN Reason: Constipation Glipizide (Glucotrol Xl) 5 mg PO BIDMEALS [facility] Last Admin: 12/24/16 18:26 Dose: 5 mg Insulin Aspart (Novolog) 0 unit SUBCUT QIDACANDBED [facility] PRN Reason: Protocol Last Admin: 12/24/16 21:45 Dose: 1 units Insulin Detemir (Levemir) 22 unit SUBCUT BID [facility] Last Admin: 12/24/16 21:42 Dose: 22 units Isosorbide Mononitrate (Imdur) 60 mg PO DAILY [facility] Latanoprost (Xalatan 0.005% Ophth Soln) 0 ml EYEBOTH DAILY [facility] Metoprolol Succinate (Toprol Xl) 50 mg PO DAILY [facility] Multivitamins/Minerals (I-Lanre) 1 each PO DAILY [facility] Ondansetron HCl (Zofran Odt) 4 mg PO Q6H PRN PRN Reason: nausea, able to take PO Polyethylene Glycol (Miralax) 17 gm PO DAILY PRN PRN Reason: Constipation Discontinued Medications Non-Formulary Medication (Fish Oil/[place]-3 Fatty Acids [Fish Oil 1,000 Mg]) 1 each PO DAILY [facility] Triamcinolone Acetonide (Triamcinolone Acetonide 0.1% Crm) 0 gm TOP BID [facility] - Exam General: Alert, Oriented, Cooperative, No Acute Distress. No: Moderate Distress , Severe Distress, Sedated, Lethargic, Obtunded HEENT: Pupils Equal, Pupils Reactive, EOMI, Mucous Membr. Moist/[place] Neck: Supple, Trachea Midline, No JVD, Other (no spinous tenderness) Lungs: Clear to Auscultation, Normal Respiratory Effort Cardiovascular: Regular Rate, Regular Rhythm GI/Abdominal Exam: Normal Bowel Sounds, Soft, Non-Tender, No Organomegaly, No Distention, No Abnormal Bruit, No Mass Back Exam: Normal Inspection, Full Range of Motion. No: Vertebral Tenderness Extremities: Normal Inspection, Normal Range of Motion, Non-Tender, No Pedal Edema, Normal Capillary Refill Skin: Dry, Intact. No: Rash Neurological: No New Focal Deficit, Normal Speech, Sensation Intact Psy/Mental Status: Alert, Normal Affect, Normal Mood (Except for questionable right arm weakness against resistance) - Problem List & Annotations (1) Diabetes mellitus type 2 in obese SNOMED Code(s): 83100485 Code(s): E11.69 - TYPE 2 DIABETES MELLITUS WITH OTHER SPECIFIED COMPLICATION ; E66.9 - OBESITY, UNSPECIFIED Status: Chronic Current Visit: Yes (2) CHF, Congestive heart failure SNOMED Code(s): 01074690 Code(s): I50.9 - HEART FAILURE, UNSPECIFIED Status: Chronic Current Visit : Yes (3) Generalized weakness SNOMED Code(s): 33688111 Code(s): R53.1 - WEAKNESS Status: Chronic Current Visit: Yes - Problem List Review Problem List Initiated/Reviewed/Updated: Yes - My Orders Last 24 Hours: My Active Orders 12/24/16 12:58 Consult to Occupational Therapy [OT Evaluation and Treatment] [CONS] Routine Consult to Physical Therapy [PT Evaluation and Treatment] [CONS] Routine 12/24/16 12:59 Consult to Strand Gal[employer]izer [CONS] Routine 12/24/16 13:08 OCCULT BLOOD DIAGNOSTIC [OP] Routine 12/24/16 17:00 Insulin Aspart [NovoLOG] See Protocol SUBCUT QIDACANDBED 12/24/16 18:00 glipiZIDE [Glucotrol XL] 5 mg PO BIDMEALS 12/24/16 21:00 Insulin Detemir [Levemir] 22 unit SUBCUT BID 12/25/16 07:43 Brain wo Cont [MR] Routine Cervical Spine Comp wo Cont [MR] Routine 12/25/16 09:00 Isosorbide Mononitrate [Imdur] 60 mg PO DAILY Latanoprost [Xalatan 0.005% Ophth Soln] 0 ml EYEBOTH DAILY Lutein/Minerals/Vit A,C & E [I-Lanre] 1 each PO DAILY Metoprolol Succinate [Toprol XL] 50 mg PO DAILY 12/26/16 05:11 BASIC METABOLIC PANEL,BMP [CHEM] AM CBC WITH AUTO DIFF [HEME] AM - Plan Plan:: 86-year-old female who came for generalized weakness with the falls at home. She lives in assisted living but she does not think she has enough care that would make her feel safe at home. Her daughter states she is not able to help her by herself. Generalized weakness with extremities weakness Consult PT and OT cervical, thoracic, lumbar spine x-rays reported generative disease mostly and cervical spine were radiologist reported ligamentous instability -I ordered MRI of brain and cervical spine without contrast -Awaiting Urine culture Falls at home Consult PT and OT -Ordered cervical, thoracic, lumbar spine x-rays -Urine culture ordered Anemia Hemoglobin is low patient denies blood in stool or black stool Reticulocyte is elevated at 2% -Iron study is ordered -Hemoccult of stool is ordered Diabetes mellitus type 2 Continue Levemir 22 units twice a day Continue glipizide 10 mg twice a day Sliding-scale insulin, low-dose regimen History of congestive heart failure Stable Continue metoprolol succinate ANNELIESE hose and SCDs for DVT prophylaxis Patient and daughter requested DNR for CODE STATUS
[2016-12-25] MEDS: Insulin Aspart 100 Units/ML 3 ML Pen SUBCUT SCH (08:32)
[2016-12-25] MEDS: Insulin Detemir 100 Units/ML 3 ML Pen SUBCUT SCH (08:36)
[2016-12-25] MEDS: glipiZIDE 5 MG Tab.ER PO SCH (08:36)
--- NOTE | 2016-12-25 08:55 | MR ---
Clinical history: 86-year-old hospitalized 156 pound female with generalized extremity weakness who i s "unbalanced". No known trauma this patient with signs of "multilevel disc disease and hypertrophic marginal spondylosis" on plain film exam of the spine. Patient reported on previous CT scan of the he ad 30 August 2013 after closed head injury to have "atrophy consistent with age, right maxillary sinusi tis, but otherwise negative CT scan". Reevaluate please. Scan technique: Unenhanced sagittal T1 and multisequence axial MR images of the head and brain obtain ed with the patient lying supine on the [employer] [place], [place]. All data archived in the PAC system for storage, reformatting and study. Interpretation: 1. Age-appropriate atrophy. 2. Symmetric mild prominence of the underlying ventricular system with increased immediate periventri cular signal suggesting the possibility of normal pressure normotensive hydrocephalus but appearance ventricular volume relatively unchanged except for technique in the interval since CT scan head August 2013. Significance? Clinical? 3. Scattered small microvascular ischemic changes throughout the periventricular white matter both ce rebral hemispheres. No signs of cerebral edema, geographic infarct, encephalomalacia, or intracranial supratentorial/post erior fossa mass lesion. 4. No sign of acute intracerebral/intraventricular/subarachnoid bleed. No extracerebral epidural or s ubdural hematoma. 5. Cerebellum and brainstem unremarkable. 6. Periosteal inflammation maxillary and ethmoid sinuses (right greater than left). Mastoid sinuses c lear. CONCLUSION: Sinusitis. Scattered microvascular multi-infarct disease. Subtle changes suggesting early hydrocephalus.
[2016-12-25] MEDS ORDERED: OMEGA PO SCH (09:00)
[2016-12-25] MEDS ORDERED: Isosorbide Mononitrate 60 MG Tab.ER PO SCH (09:00)
[2016-12-25] MEDS ORDERED: Metoprolol Succinate 50 MG Tab.ER PO SCH (09:00)
[2016-12-25] MEDS ORDERED: [UNRECOGNIZED DRUG - OTHER] PO SCH (09:00)
[2016-12-25] MEDS ORDERED: FISH OIL PO SCH (09:00)
[2016-12-25] MEDS ORDERED: Lutein/Minerals/Vit A,C & E Tab PO SCH (09:00)
[2016-12-25] MEDS ORDERED: FATTY ACIDS PO SCH (09:00)
[2016-12-25] MEDS ORDERED: Latanoprost 0.005% Ophth Soln 2.5 ML Bottle EYEBOTH SCH (09:00)
[2016-12-25] MEDS ORDERED: Amoxicillin/Clavulanate K 875-125 MG Tab PO SCH (09:02)
[2016-12-25] MEDS ORDERED: Fluticasone Propionate Nasal Spray 16 GM Bottle NASBOTH SCH (09:15)
--- NOTE | 2016-12-25 09:26 | MR ---
Clinical history: 86-year-old 156 pound "unbalanced" female with generalized upper and lower extremit y weakness. "Multilevel disc disease/spondylosis" plain films spine and suggestion possible "early hy drocephalus/multi-infarct disease" on MRI exam of the brain. Scan technique: Sagittal T1/T2/STIR and unenhanced axial MR images of the cervical spine obtained wit h patient lying supine on the [employer] [facility]. All data archived in the PACS system for storage, reformatting and study. Interpretation: Abnormal. 1. Chronic multilevel cervical and upper thoracic disc disease i.e. desiccation and flattening nucleu s pulposus nearly all. 2. Subtle anterolisthesis C4 and T3 vertebra, respectively. No fractures. 3. Hypertrophic marginal and uncinate spur formation (spondylosis) with osteophytes particularly prom inent at the C3-4, C5-6, C6-7, T2-3, T3-4 and T5-6 levels. 4. Posterior, midline disc herniation C3-4 level effacing the passing cervical spinal cord and contri buting to a focal tight upper cervical spinal canal stenosis (C4-5 spinal stenosis also present refle cting C4 anterolisthesis and spondylosis). 5. Asymmetric paracentral disc herniation (disc-osteophyte complexes), on the right, at the C3-4, C6- 7, and T2-3 levels. 6. Similar prominent paracentral disc-osteophyte complexes encroaching on the spinal canal laterally, on the left, at the C3-4, and C6-C7 levels (less prominent C4-5, T2-3 and T3-4, on the left). 7. No sign of pathologic skeletal lesion. No extruded "free" intracanalicular disc fragment or signs of intracanalicular soft tissue tumor mass. CONCLUSION: Chronic multilevel disc disease, hypertrophic spondylosis (osteophytes), and tight upper cervical stenosis. Anterolisthesis at both the C4 and T3 levels. Prominent disc-osteophyte complexes on the right (C6-7, T2-3 and T5-6 levels)
--- NOTE | 2016-12-25 10:10 | PCM.HP ---
H&P History of Present Illness - General Date of Service: 12/25/16 Admit Problem/Dx: Admission Diagnosis/Problem Admission Diagnosis/Problem Weakness Source of Information: Patient, Family (Daughter) History Limitations: Reports: No Limitations - History of Present Illness Initial Comments - Free Text/Narative: 86-year-old female with history of diabetes mellitus, congestive heart failure, coronary artery disease status post stents about 4 years ago urinary tract infection presented to the emergency room with her daughter for worsening of the generalized weakness, all extremities weakness but mostly lower extremities , unbalance, frequent falls for the last 3 weeks and progressively getting worse. She fail at home 4 times in the last 6 days. She denies hitting her head.. She denied hitting her head. However she had some old bruises on the left posterior shoulder and left posterior chest wall. Patient denies headache, change in vision, upper respiratory symptoms, chest pain, shortness breath, cough, abdominal pain, nausea, vomiting, fever, chills, diarrhea, dysuria, urinary frequency, difficulty urinating or defecating, any other symptoms or concern. Patient was seen in emergency room on 12/18/16 for similar complaint also seen by her primary care provider recently and she wants to go to long term. However daughter does not feel that patient safe to stay at home and she doesn't think she can take care of her mother. In the emergency room her hemoglobin is 10.8. CMP is unremarkable. Troponin is 0.03 which is similar to where it was 1 week ago. Magnesium and phosphorus are normal. UA is unremarkable. During hospitalization patient did not have any acute events. I did x-ray for cervical, thoracic, lumbar spine and there were degenerative diseases. I did MRI of brain and spine without contrast. I discussed them with Dr. Alcala from [facility] over the phone. Dr. Alcala look at the MRI and he did not agree with normal pressure hydrocephalus of the brain. 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 He recommended patient follow-up at the neurosurgery clinic in the next 1-2 weeks. Rectal exam was normal. Patient and daughter declined systemic steroid treatment. Dr. Alcala recommended soft collar. Patient and daughter did not want to delay discharge to long term and they want to go today since there is bed available at long term. MRI of the brain reported sinusitis so patient was started on amoxicillin. Patient to follow-up with primary care provider and neurosurgery as soon as possible - Related Data Allergies/Adverse Reactions: Allergies Allergy/AdvReac Type Severity Reaction Status Date / Time JUDSON Inhibitors Allergy Anaphylactic Verified 12/24/16 13:15 Shock Home Medications: Home Meds Insulin Detemir [Levemir Flextouch] 22 units SQ BID 10/05/15 [History] Isosorbide Mononitrate [Imdur] 60 mg PO DAILY 10/05/15 [History] Latanoprost [Xalatan 0.005% Ophth Soln] 1 drop EYEBOTH DAILY 10/05/15 [History] Metoprolol Succinate [Toprol XL 50mg] 50 mg PO DAILY 10/05/15 [History] amLODIPine [Norvasc] 5 mg PO DAILY 10/05/15 [History] glipiZIDE [Glipizide Xl] 10 mg PO BIDMEALS 10/05/15 [History] Aspirin [Kia Chewable Aspirin] 81 mg PO DAILY 12/18/16 [History] Calcium Carbonate/Vitamin D3 [Calcium 250+D] 2 tab PO BIDMEALS 12/18/16 [History ] Cranberry Extract [Cranberry] 500 mg PO BIDMEALS 12/18/16 [History] FA/Vit C/E/Zinc/Copper/Lut/Anup [Ocuvel Capsule] 1 cap PO DAILY 12/18/16 [History ] Triamcinolone Acetonide [Triamcinolone Acetonide 0.1% Crm] 1 gm TOP DAILY [History] Amoxicillin/Clavulanate K [Augmentin 875 MG/125 MG] 1 tab PO Q12HR 10 Days #20 tablet 12/25/16 [Rx] Past Medical History HEENT History: Reports: Glaucoma Cardiovascular History: Reports: High Cholesterol, Hypertension Gastrointestinal History: Reports: Other (See Below) Other Gastrointestinal History: Ruptured ulcer Genitourinary History: Reports: Urinary Incontinence, UTI, Recurrent FUR TRIMMER History: Reports: Musculoskeletal History: Reports: Arthritis Neurological History: Reports: Concussion, Neuropathy, Diabetic Endocrine/Metabolic History: Reports: Diabetes, Type II Oncologic (Cancer) History: Reports: Basal Cell Carcinoma Dermatologic History: Reports: Other (See Below) Other Dermatologic History: Basal Cell Carcinoma - Infectious Disease History Infectious Disease History: Reports: Shingles - Past Surgical History GI Surgical History: Reports: Appendectomy Musculoskeletal Surgical History: Reports: Knee Replacement Social & Family History - Family History Family Medical History: Noncontributory - Tobacco Use Smoking Status *Q: Never Smoker Second Hand Smoke Exposure: No - Caffeine Use Caffeine Use: Reports: None - Recreational Drug Use Recreational Drug Use: No Exam - Vital Signs Vital Signs: Last Vital Signs Temp 36.6 C 12/25/16 07:00 Pulse 63 12/25/16 08:35 Resp 18 12/25/16 07:00 BP 142/42 H 12/25/16 08:35 Pulse Ox 99 12/25/16 07:00 Weight: 71.123 kg - Patient Data Lab Results Last 24 hrs: Laboratory Results - last 24 hr 12/24/16 12/24/16 Range/Units 17:05 21:01 POC Glucose 203 H 162 H (83-110) mg/dl Result Diagrams: 12/24/16 10:38 12/24/16 10:38 *Q Meaningful Use (ADM) - VTE *Q VTE Criteria *Q: - Stroke *Q Stroke Criteria *Q: - AMI *Q AMI Criteria *Q: - Problem List (1) Diabetes mellitus type 2 in obese SNOMED Code(s): 77787035 ICD Code: E11.69 - TYPE 2 DIABETES MELLITUS WITH OTHER SPECIFIED COMPLICATION ; E66.9 - OBESITY, UNSPECIFIED Status: Chronic Current Visit: Yes (2) CHF, Congestive heart failure SNOMED Code(s): 54533175 ICD Code: I50.9 - HEART FAILURE, UNSPECIFIED Status: Chronic Current Visit: Yes (3) Generalized weakness SNOMED Code(s): 72618344 ICD Code: R53.1 - WEAKNESS Status: Chronic Current Visit: Yes (4) History of coronary artery disease SNOMED Code(s): 846652869 ICD Code: Z86.79 - PERSONAL HISTORY OF OTHER DISEASES OF THE CIRCULATORY SYSTEM Status: Acute Current Visit: Yes Orders Last 24hrs: Active Orders 24 hr Category Date Time Status Ready for Discharge [RC] PER UNIT ROUTINE Care 12/25/16 10:01 Active Consult to Occupational Therapy [OT Evaluation and Cons 12/24/16 12:58 Active Treatment] [CONS] Routine Consult to Physical Therapy [PT Evaluation and Cons 12/24/16 12:58 Active Treatment] [CONS] Routine Consult to Lumber Kiln Operator [CONS] Routine Cons 12/24/16 12:59 Active BASIC METABOLIC PANEL,BMP [CHEM] AM Lab 12/26/16 05:11 Ordered CBC WITH AUTO DIFF [HEME] AM Lab 12/26/16 05:11 Ordered OCCULT BLOOD DIAGNOSTIC [OP] Routine Lab 12/24/16 13:08 Uncollected OCCULT BLOOD DIAGNOSTIC [OP] Routine Lab 12/25/16 08:08 Uncollected Amoxicillin/Clavulanate K [Augmentin 875 MG/125 MG] Med 12/25/16 09:02 Active 1 tab PO Q12HR Fluticasone Propionate [Flonase] Med 12/25/16 09:15 Active 0 gm NASBOTH DAILY Insulin Aspart [NovoLOG] Med 12/24/16 17:00 Active See Protocol SUBCUT QIDACANDBED Insulin Detemir [Levemir] Med 12/24/16 21:00 Active 22 unit SUBCUT BID Isosorbide Mononitrate [Imdur] Med 12/25/16 09:00 Active 60 mg PO DAILY Latanoprost [Xalatan 0.005% [facility]] Med 12/25/16 09:00 Active 0 ml EYEBOTH DAILY Lutein/Minerals/Vit A,C & E [I-Lanre] Med 12/25/16 09:00 Active 1 each PO DAILY Metoprolol Succinate [Toprol XL] Med 12/25/16 09:00 Active 50 mg PO DAILY glipiZIDE [Glucotrol XL] Med 12/24/16 18:00 Active 5 mg PO BIDMEALS Medication Orders Acetaminophen (Tylenol) 650 mg PO Q4H PRN PRN Reason: Pain (Mild 1-3)/fever Amoxicillin/Clavulanate Potassium (Augmentin 875 Mg/125 Mg) 1 tab PO Q12HR RADHA Docusate Sodium (Colace) 100 mg PO BID PRN PRN Reason: Constipation Fluticasone Propionate (Flonase) 0 gm NASBOTH DAILY RADHA Glipizide (Glucotrol Xl) 5 mg PO BIDMEALS [facility] Last Admin: 12/25/16 08:36 Dose: 5 mg Admin: 12/24/16 18:26 Dose: 5 mg Insulin Aspart (Novolog) 0 unit SUBCUT QIDACANDBED RADHA PRN Reason: Protocol Last Admin: 12/25/16 08:32 Dose: Not Given Admin: 12/24/16 21:45 Dose: 1 units Admin: 12/24/16 18:26 Dose: 2 units Insulin Detemir (Levemir) 22 unit SUBCUT BID [facility] Last Admin: 12/25/16 08:36 Dose: 22 units Admin: 12/24/16 21:42 Dose: 22 units Isosorbide Mononitrate (Imdur) 60 mg PO DAILY [facility] Last Admin: 12/25/16 08:36 Dose: 60 mg Latanoprost (Xalatan 0.005% Ophth Soln) 0 ml EYEBOTH DAILY [facility] Last Admin: 12/25/16 08:36 Dose: 1 drop Metoprolol Succinate (Toprol Xl) 50 mg PO DAILY [facility] Last Admin: 12/25/16 08:35 Dose: 50 mg Multivitamins/Minerals (I-Lanre) 1 each PO DAILY [facility] Last Admin: 12/25/16 08:35 Dose: 1 each Ondansetron HCl (Zofran Odt) 4 mg PO Q6H PRN PRN Reason: nausea, able to take PO Polyethylene Glycol (Miralax) 17 gm PO DAILY PRN PRN Reason: Constipation Assessment/Plan Comment:: 86-year-old female who came for generalized weakness with the falls at home. She lives in assisted living but she does not think she has enough care that would make her feel safe at home. Her daughter states she is not able to help her by herself. Generalized weakness with extremities weakness Consult PT and OT cervical, thoracic, lumbar spine x-rays reported generative disease mostly and cervical spine were radiologist reported ligamentous instability -I ordered MRI of brain and cervical spine without contrast -Awaiting Urine culture Falls at home Consult PT and OT -Ordered cervical, thoracic, lumbar spine x-rays -Urine culture ordered Anemia Hemoglobin is low patient denies blood in stool or black stool Reticulocyte is elevated at 2% -Iron study is ordered -Hemoccult of stool is ordered Diabetes mellitus type 2 Continue Levemir 22 units twice a day Continue glipizide 10 mg twice a day Sliding-scale insulin, low-dose regimen History of congestive heart failure Stable Continue metoprolol succinate ANNELIESE miller and SCDs for DVT prophylaxis Patient and daughter requested DNR for CODE STATUS
--- NOTE | 2016-12-25 10:18 | PCM.DCSUM1 ---
Discharge Summary - Hospital Course Free Text/Narrative:: 86-year-old female with history of diabetes mellitus, congestive heart failure, coronary artery disease status post stents about 4 years ago urinary tract infection presented to the emergency room with her daughter for worsening of the generalized weakness, all extremities weakness but mostly lower extremities , unbalance, frequent falls for the last 3 weeks and progressively getting worse. She fail at home 4 times in the last 6 days. She denies hitting her head.. She denied hitting her head. However she had some old bruises on the left posterior shoulder and left posterior chest wall. Patient denies headache, change in vision, upper respiratory symptoms, chest pain, shortness breath, cough, abdominal pain, nausea, vomiting, fever, chills, diarrhea, dysuria, urinary frequency, difficulty urinating or defecating, any other symptoms or concern. Patient was seen in emergency room on 12/18/16 for similar complaint also seen by her primary care provider recently and she wants to go to [facility]. However daughter does not feel that patient safe to stay at home and she doesn't think she can take care of her mother. In the emergency room her hemoglobin is 10.8. CMP is unremarkable. Troponin is 0.03 which is similar to where it was 1 week ago. Magnesium and phosphorus are normal. UA is unremarkable. During hospitalization patient did not have any acute events. I did x-ray for cervical, thoracic, lumbar spine and there were degenerative diseases. I did MRI of brain and spine without contrast. I discussed them with Dr. Alcala from [facility] over the phone. Dr. Alcala look at the MRI and he did not agree with normal pressure hydrocephalus of the brain. 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 He recommended patient follow-up at the neurosurgery clinic in the next 1-2 weeks. Rectal exam was normal. Patient and daughter declined systemic steroid treatment. Dr. Alcala recommended soft collar. Patient and daughter did not want to delay discharge to [facility] and they want to go today since there is bed available at [facility]. MRI of the brain reported sinusitis so patient was started on amoxicillin. Patient to follow-up with primary care provider and neurosurgery as soon as possible - Discharge Data Discharge Date: 12/25/16 Discharge Disposition: DC/Tfer to SNF 03 Condition: Good - Discharge Diagnosis/Problem(s) (1) Diabetes mellitus type 2 in obese SNOMED Code(s): 55675714 ICD Code: E11.69 - TYPE 2 DIABETES MELLITUS WITH OTHER SPECIFIED COMPLICATION ; E66.9 - OBESITY, UNSPECIFIED Status: Chronic Current Visit: Yes (2) CHF, Congestive heart failure SNOMED Code(s): 17998066 ICD Code: I50.9 - HEART FAILURE, UNSPECIFIED Status: Chronic Current Visit: Yes (3) Generalized weakness SNOMED Code(s): 70343339 ICD Code: R53.1 - WEAKNESS Status: Chronic Current Visit: Yes (4) History of coronary artery disease SNOMED Code(s): 565650788 ICD Code: Z86.79 - PERSONAL HISTORY OF OTHER DISEASES OF THE CIRCULATORY SYSTEM Status: Acute Current Visit: Yes - Patient Summary/Data Consults: Consultations 12/24/16 12:58 Consult to Occupational Therapy [OT Evaluation and Treatment] [CONS] Routine Consult to Physical Therapy [PT Evaluation and Treatment] [CONS] Routine 12/24/16 12:59 Consult to Levi Maker [CONS] Routine - Patient Instructions Diet: Heart Healthy Diet, Diabetic Diet Activity: Apply Ice, As Tolerated (fall precautions) Showering/Bathing: May Shower Other/Special Instructions: Notify primary care if patient weakness gets worse and if difficulty urinating or defecating - Discharge Plan Prescriptions/Med Rec: Amoxicillin/Clavulanate K [Augmentin 875 MG/125 MG] 1 tab PO Q12HR 10 Days #20 tablet Home Medications: Home Meds Insulin Detemir [Levemir Flextouch] 22 units SQ BID 10/05/15 [History] Isosorbide Mononitrate [Imdur] 60 mg PO DAILY 10/05/15 [History] Latanoprost [Xalatan 0.005% [facility] Soln] 1 drop EYEBOTH DAILY 10/05/15 [History] Metoprolol Succinate [Toprol XL 50mg] 50 mg PO DAILY 10/05/15 [History] amLODIPine [Norvasc] 5 mg PO DAILY 10/05/15 [History] glipiZIDE [Glipizide Xl] 10 mg PO BIDMEALS 10/05/15 [History] Aspirin [Kia Chewable Aspirin] 81 mg PO DAILY 12/18/16 [History] Calcium Carbonate/Vitamin D3 [Calcium 250+D] 2 tab PO BIDMEALS 12/18/16 [History ] Cranberry Extract [Cranberry] 500 mg PO BIDMEALS 12/18/16 [History] FA/Vit C/E/Zinc/Copper/Lut/Anup [Ocuvel Capsule] 1 cap PO DAILY 12/18/16 [History ] Triamcinolone Acetonide [Triamcinolone Acetonide 0.1% Crm] 1 gm TOP DAILY [History] Amoxicillin/Clavulanate K [Augmentin 875 MG/125 MG] 1 tab PO Q12HR 10 Days #20 tablet 12/25/16 [Rx] - General Info Date of Service: 12/25/16 Subjective Update: Patient stated that she is feeling the same. She denies any new symptoms. She admitted that she was feeling unbalanced at home medication to feeling weak in all extremities which made her fall and not able to take care of herself. She denies weakness and one-sided sodium more than the other. However patient stated that the nurse at night thoughts she is weaker on the left side. However on my exam I did not appreciated that. In fact she appears somewhat to be slightly weaker (questionable) in right arm. Overall her extremities are weak to resist. Patient denies fever, chills, nausea, vomiting, chest pain, shortness breath, abdominal pain, blood in stool, black stool, any other symptoms or concerns. - Patient Data Vitals - Most Recent: Last Vital Signs Temp 36.6 C 12/25/16 07:00 Pulse 63 12/25/16 08:35 Resp 18 12/25/16 07:00 BP 142/42 H 12/25/16 08:35 Pulse Ox 99 12/25/16 07:00 Weight - Most Recent: 71.123 kg I&O - Last 24 hours: Intake & Output 12/24/16 12/25/16 12/25/16 22:59 06:59 14:59 Intake Total 890 850 Output Total 200 1000 Balance 690 -150 Lab Results - Last 24 hrs: Laboratory Results - last 24 hr 12/24/16 12/24/16 Range/Units 17:05 21:01 POC Glucose 203 H 162 H (83-110) mg/dl Med Orders - Current: Current Medications Acetaminophen (Tylenol) 650 mg PO Q4H PRN PRN Reason: Pain (Mild 1-3)/fever Amoxicillin/Clavulanate Potassium (Augmentin 875 Mg/125 Mg) 1 tab PO Q12HR [facility] Docusate Sodium (Colace) 100 mg PO BID PRN PRN Reason: Constipation Fluticasone Propionate (Flonase) 0 gm NASBOTH DAILY [facility] Glipizide (Glucotrol Xl) 5 mg PO BIDMEALS [facility] Last Admin: 12/25/16 08:36 Dose: 5 mg Insulin Aspart (Novolog) 0 unit SUBCUT QIDACANDBED [facility] PRN Reason: Protocol Last Admin: 12/25/16 08:32 Dose: Not Given Insulin Detemir (Levemir) 22 unit SUBCUT BID [facility] Last Admin: 12/25/16 08:36 Dose: 22 units Isosorbide Mononitrate (Imdur) 60 mg PO DAILY [facility] Last Admin: 12/25/16 08:36 Dose: 60 mg Latanoprost (Xalatan 0.005% Ophth Soln) 0 ml EYEBOTH DAILY [facility] Last Admin: 12/25/16 08:36 Dose: 1 drop Metoprolol Succinate (Toprol Xl) 50 mg PO DAILY [facility] Last Admin: 12/25/16 08:35 Dose: 50 mg Multivitamins/Minerals (I-Lanre) 1 each PO DAILY [facility] Last Admin: 12/25/16 08:35 Dose: 1 each Ondansetron HCl (Zofran Odt) 4 mg PO Q6H PRN PRN Reason: nausea, able to take PO Polyethylene Glycol (Miralax) 17 gm PO DAILY PRN PRN Reason: Constipation Discontinued Medications Non-Formulary Medication (Fish Oil/[place]-3 Fatty Acids [Fish Oil 1,000 Mg]) 1 each PO DAILY [facility] Triamcinolone Acetonide (Triamcinolone Acetonide 0.1% Crm) 0 gm TOP BID [facility] - Exam General: Reports: Alert, Oriented, Cooperative, No Acute Distress. Denies: Mild Distress, Moderate Distress, Severe Distress, Sedated, Lethargic, Obtunded HEENT: Reports: Pupils Equal, Pupils Reactive, EOMI, Mucous Membr. Moist/[place] Neck: Reports: Supple, Trachea Midline, No JVD Lungs: Reports: Clear to Auscultation, Normal Respiratory Effort. Denies: Crackles, Rales, Rhonchi, Rub, Stridor, Wheezing Cardiovascular: Reports: Regular Rate, Regular Rhythm GI/Abdominal Exam: Normal Bowel Sounds, Soft, Non-Tender, No Organomegaly, No Distention, No Abnormal Bruit, No Mass (Female) Exam: Deferred Rectal (Female) Exam: Normal Exam, Normal Rectal Tone Back Exam: Reports: Normal Inspection, Full Range of Motion, Vertebral Tenderness. Denies: CVA Tenderness (L), CVA Tenderness (R) Extremities: Normal Inspection, Normal Range of Motion, Non-Tender, No Pedal Edema, Normal Capillary Refill Skin: Reports: Dry, Intact. Denies: Rash Neurological: Reports: Normal Speech, Other (Shuffling with baby steps) Psy/Mental Status: Reports: Alert, Normal Affect, Normal Mood *Q Meaningful Use (DIS) - VTE *Q VTE Criteria *Q: - Stroke *Q Stroke Criteria *Q: - AMI *Q AMI Criteria *Q:
[2016-12-25 11:56] VITALS: BP 118/49
--- NOTE | 2016-12-29 20:34 | EKG ---
12/24/2016 - REJI LINDSAY I reviewed the EKG and agree with machine's reading. [facility] /[id number]
== END 2016-12-25 11:45 ==
LOC: DL.ED 10:23 → UNDOADMOB 12:49 → DL.MS 12:49
PROVIDERS: ADMIT Family Medicine; ATTEND Family Medicine
DX: E11.69 Type 2 diabetes mellitus with other specified complication (principal); E66.9 Obesity, unspecified; I50.9 Heart failure, unspecified; R53.1 Weakness; Z86.79 Personal history of other diseases of the circulatory system; Z79.2 Long term (current) use of antibiotics; Z79.82 Long term (current) use of aspirin; Z79.4 Long term (current) use of insulin; Z79.899 Other long term (current) drug therapy; Z88.8 Allergy status to other drugs, medicaments and biological substances
CPT/HCPCS: 36415; 70551; 71010; 72040; 72070; 72100; 72141; 80053; 81001; 82607; 82746; 82962; 83735; 83880; 84100; 84484; 85025; 85045; 87086; 93005; 93010; 99285; A9270; J1815; 87088; 87186; 99284; G0378

== ENCOUNTER 2021-08-25 08:22 | Inpatient (IN) | payer MEDICARE, BC ==
[2021-08-25] MEDS ORDERED: Sodium Chloride 0.9% 10 ML Syringe FLUSH PRN ×2 (08:32→11:01)
[2021-08-25 09:21] LABS: ANION GAP 14.8 mEq/L (7-13); CHLORIDE,CL 105 mmol/L (98-107); SODIUM,NA 142 mmol/L (136-145)
[2021-08-25 09:24] LABS: ESTIMATED GFR 31 mL/min (>=60)
[2021-08-25 09:38] LABS: CORONAVIRUS COVID-19 NAA NEGATIVE (NEGATIVE)
[2021-08-25] MEDS ORDERED: Furosemide 40 MG/4 ML VIAL IVPUSH ONE (09:46)
[2021-08-25] MEDS ORDERED: Docusate Sodium 100 MG Cap PO PRN (11:01)
[2021-08-25] MEDS ORDERED: Ondansetron 4 MG Tab.DIS PO PRN (11:01)
[2021-08-25] MEDS ORDERED: Ondansetron 4 MG/2 ML SDV IVPUSH PRN (11:01)
[2021-08-25] MEDS ORDERED: 50% Dextrose in Water 50 ML Syringe IVPUSH PRN (11:07)
[2021-08-25] MEDS ORDERED: Glucagon,Human Recombinant 1 MG Vial IM PRN (11:07)
[2021-08-25] MEDS: Insulin Lispro 100 Units/ML 3 ML Vial SUBCUT SCH ×3 (12:14→21:15)
[2021-08-25] MEDS: Heparin Sodium 5,000 Units/ML Vial SUBCUT SCH ×2 (15:31→21:08)
[2021-08-25] MEDS ORDERED: amLODIPine 5 MG Tab PO SCH (20:00)
[2021-08-25] MEDS: Lutein/Minerals/Vit A,C & E Tab PO SCH (20:49)
[2021-08-25] MEDS: Ascorbic Acid 500 MG Tab PO SCH (20:49)
[2021-08-25] MEDS: Furosemide 40 MG/4 ML VIAL IVPUSH SCH (20:50)
[2021-08-25] MEDS: Carboxymethylcellulose Sodium 1% Ophth Gel 0.4 ML UD EYELF SCH (20:54)
[2021-08-25] MEDS ORDERED: Acetaminophen 325 MG Tab PO SCH (21:00)
[2021-08-25] MEDS: Acetaminophen 325 MG Tab PO PRN (21:01)
[2021-08-25] MEDS: Insulin Glarg,Human.Rec.Analog 100 Unit/ML SUBCUT SCH (21:14)
[2021-08-26] MEDS: Acetaminophen 325 MG Tab PO PRN (02:17)
[2021-08-26] MEDS: Heparin Sodium 5,000 Units/ML Vial SUBCUT SCH (06:10)
[2021-08-26 06:31] LABS: ANION GAP 13.8 mEq/L (7-13)
[2021-08-26] MEDS ORDERED: Calcium Carbonate/Vitamin D3 1250 MG-5 MCG Tab PO SCH (08:00)
[2021-08-26] MEDS: Insulin Glarg,Human.Rec.Analog 100 Unit/ML SUBCUT SCH (08:28)
[2021-08-26] MEDS: Insulin Lispro 100 Units/ML 3 ML Vial SUBCUT SCH ×2 (08:29→12:16)
[2021-08-26] MEDS: Furosemide 40 MG/4 ML VIAL IVPUSH SCH (08:29)
[2021-08-26] MEDS: Carboxymethylcellulose Sodium 1% Ophth Gel 0.4 ML UD EYELF SCH (08:29)
[2021-08-26] MEDS: Lutein/Minerals/Vit A,C & E Tab PO SCH (08:30)
[2021-08-26] MEDS: Ascorbic Acid 500 MG Tab PO SCH (08:30)
[2021-08-26] MEDS ORDERED: Ferrous Sulfate 325 MG Tab PO SCH (09:00)
[2021-08-26] MEDS ORDERED: Aspirin 81 MG Tab.Chew PO SCH (09:00)
[2021-08-26] MEDS ORDERED: [UNRECOGNIZED DRUG - MIXTURE] PO SCH ×2 (09:00)
[2021-08-26] MEDS ORDERED: Latanoprost 0.005% Ophth Soln 2.5 ML Bottle EYEBOTH SCH (09:00)
[2021-08-26] MEDS ORDERED: Cyanocobalamin (Vitamin B12) 1,000 MCG Tab PO SCH (09:00)
[2021-08-26] MEDS ORDERED: Metoprolol Succinate 50 MG Tab.ER PO SCH (09:00)
[2021-08-26] MEDS ORDERED: Isosorbide Mononitrate 60 MG Tab.ER PO SCH (09:00)
[2021-08-26 12:15] VITALS: BP 135/41; PULSE 70
== END 2021-08-26 13:15 | disposition home or self-care (01) | DRG 291 ==
LOC: DL.ED 08:22 → DL.MS 10:48
PROVIDERS: ADMIT Hospitalist; ATTEND Hospitalist
DX: J81.0 Acute pulmonary edema (principal); I13.0 Hypertensive heart and chronic kidney disease with heart failure and stage 1 through stage 4 chronic kidney disease, or unspecified chronic kidney disease; R32 Unspecified urinary incontinence; M19.90 Unspecified osteoarthritis, unspecified site; E11.40 Type 2 diabetes mellitus with diabetic neuropathy, unspecified; I10 Essential (primary) hypertension; Z87.01 Personal history of pneumonia (recurrent); Z85.828 Personal history of other malignant neoplasm of skin; I50.33 Acute on chronic diastolic (congestive) heart failure; J96.01 Acute respiratory failure with hypoxia; I25.10 Atherosclerotic heart disease of native coronary artery without angina pectoris; E11.22 Type 2 diabetes mellitus with diabetic chronic kidney disease; Z66 Do not resuscitate; E78.00 Pure hypercholesterolemia, unspecified; N18.30 Chronic kidney disease, stage 3 unspecified; E11.42 Type 2 diabetes mellitus with diabetic polyneuropathy; Z96.659 Presence of unspecified artificial knee joint; Z20.822 Contact with and (suspected) exposure to COVID-19; Z88.8 Allergy status to other drugs, medicaments and biological substances; Z88.5 Allergy status to narcotic agent; Z79.4 Long term (current) use of insulin; Z79.82 Long term (current) use of aspirin; Z79.899 Other long term (current) drug therapy; Z90.49 Acquired absence of other specified parts of digestive tract; Z90.710 Acquired absence of both cervix and uterus
CPT/HCPCS: 0240U; 36415; 71045; 80048; 80053; 81001; 82947; 83605; 83735; 83880; 84145; 84484; 85025; 87040; 87086; 93005; 97161; 97166; 93010; 96374; 99284; 99285-25; A9270-GY; J1644; J1815-GY; J1940; J3490; U0002

== ENCOUNTER 2021-10-20 07:35 | Inpatient (IN) | payer MEDICARE, BC ==
[2021-10-20] MEDS ORDERED: Furosemide 100 MG/10 ML SDV IVPUSH ONE (07:45)
[2021-10-20] MEDS: Sodium Chloride 0.9% 10 ML Syringe FLUSH PRN ×2 (07:56→11:37)
[2021-10-20] MEDS ORDERED: Levofloxacin/Dextrose 5%-Water 500 MG in Premix Bag 1 BAG IV ONE (08:41)
[2021-10-20] MEDS ORDERED: Morphine 2 MG/ML SYRINGE IVPUSH ONE (08:55)
[2021-10-20 08:59] LABS: ANION GAP 18.7 mEq/L (7-13); PTT,PARTIAL THROMBOPLSTIN TIME 22.1 SEC (22.0-34.0)
[2021-10-20] MEDS ORDERED: Ondansetron 4 MG/2 ML SDV IVPUSH PRN (09:57)
[2021-10-20] MEDS ORDERED: Docusate Sodium 100 MG Cap PO PRN (09:57)
[2021-10-20] MEDS ORDERED: Ondansetron 4 MG Tab.DIS PO PRN (09:57)
[2021-10-20] MEDS ORDERED: Polyethylene Glycol 3350 Powder 17 GM Packet PO PRN (09:57)
[2021-10-20] MEDS ORDERED: Sodium Chloride 0.9% 10 ML Syringe FLUSH PRN (09:58)
[2021-10-20] MEDS ORDERED: 50% Dextrose in Water 50 ML Syringe IVPUSH PRN (10:22)
[2021-10-20] MEDS ORDERED: Glucagon,Human Recombinant 1 MG Vial IM PRN (10:22)
[2021-10-20] MEDS: Cefepime 1 GM in Sodium Chloride 0.9% 50 ML IV SCH ×2 (11:36→21:39)
[2021-10-20] MEDS: Insulin Lispro 100 Units/ML 3 ML Vial SUBCUT SCH ×3 (12:09→21:08)
[2021-10-20 13:30] LABS: ANION GAP 13.5 mEq/L (7-13)
[2021-10-20] MEDS: Heparin Sodium 5,000 Units/ML Vial SUBCUT SCH ×2 (14:44→21:10)
[2021-10-20] MEDS: Carboxymethylcellulose Sodium 1% Ophth Gel 0.4 ML UD EYELF SCH ×2 (14:45→21:18)
[2021-10-20] MEDS ORDERED: Sodium Chloride 0.9% 1,000 ML IV SCH (14:45)
[2021-10-20] MEDS: Acetaminophen 325 MG Tab PO PRN (15:22)
[2021-10-20 16:32] LABS: CORONAVIRUS COVID-19 NAA NEGATIVE (NEGATIVE); RESPIRATORY SYNCYTIAL VIR NAA NEGATIVE (NEGATIVE)
[2021-10-20] MEDS: amLODIPine 5 MG Tab PO SCH (21:06)
[2021-10-20] MEDS: Latanoprost 0.005% Ophth Soln 2.5 ML Bottle EYEBOTH SCH (21:10)
[2021-10-20] MEDS: Insulin Glarg,Human.Rec.Analog 100 Unit/ML SUBCUT SCH (21:10)
[2021-10-20] MEDS: Sodium Chloride 0.9% 10 ML Syringe FLUSH SCH (21:11)
[2021-10-21] MEDS: guaiFENesin 100 MG/5 ML Soln 5 ML UD Cup PO PRN ×2 (01:37→21:56)
[2021-10-21] MEDS: Heparin Sodium 5,000 Units/ML Vial SUBCUT SCH ×3 (05:18→21:24)
[2021-10-21 07:15] LABS: ANION GAP 14.4 mEq/L (7-13)
[2021-10-21] MEDS: Insulin Lispro 100 Units/ML 3 ML Vial SUBCUT SCH ×4 (08:33→20:51)
[2021-10-21] MEDS: Metoprolol Succinate 50 MG Tab.ER PO SCH (08:37)
[2021-10-21] MEDS: Isosorbide Mononitrate 60 MG Tab.ER PO SCH (08:37)
[2021-10-21] MEDS: Aspirin 81 MG Tab.Chew PO SCH (08:37)
[2021-10-21] MEDS: Ferrous Sulfate 325 MG Tab PO SCH (08:37)
[2021-10-21] MEDS: Timolol Maleate 0.5% Ophth Soln 5 ML Bottle EYERT SCH (08:38)
[2021-10-21] MEDS: Sodium Chloride 0.9% 10 ML Syringe FLUSH SCH ×2 (08:40→20:49)
[2021-10-21] MEDS: Insulin Glarg,Human.Rec.Analog 100 Unit/ML SUBCUT SCH ×2 (08:51→20:49)
[2021-10-21] MEDS: Carboxymethylcellulose Sodium 1% Ophth Gel 0.4 ML UD EYELF SCH ×3 (08:54→20:47)
[2021-10-21] MEDS: Scopolamine 1.5 MG Transdermal Patch TRDERM SCH (09:16)
[2021-10-21] MEDS: Cefepime 1 GM in Sodium Chloride 0.9% 50 ML IV SCH ×2 (11:22→21:32)
[2021-10-21] MEDS: Furosemide 40 MG/4 ML VIAL IVPUSH SCH (13:41)
[2021-10-21] MEDS: Sodium Chloride 0.9% 10 ML Syringe FLUSH PRN (13:42)
[2021-10-21] MEDS ORDERED: Albuterol/Ipratropium 3.0-0.5 MG/3 ML Neb Soln NEB PRN (13:51)
[2021-10-21] MEDS: Latanoprost 0.005% Ophth Soln 2.5 ML Bottle EYEBOTH SCH (20:48)
[2021-10-21] MEDS: amLODIPine 5 MG Tab PO SCH (20:53)
[2021-10-21] MEDS: Acetaminophen 325 MG Tab PO PRN (23:50)
[2021-10-22] MEDS: guaiFENesin 100 MG/5 ML Soln 5 ML UD Cup PO PRN (03:58)
[2021-10-22] MEDS: Heparin Sodium 5,000 Units/ML Vial SUBCUT SCH ×3 (05:43→21:21)
[2021-10-22 06:38] LABS: ANION GAP 11.8 mEq/L (7-13)
[2021-10-22] MEDS: Furosemide 40 MG/4 ML VIAL IVPUSH SCH ×2 (08:35→14:31)
[2021-10-22] MEDS: Ferrous Sulfate 325 MG Tab PO SCH (08:39)
[2021-10-22] MEDS: Aspirin 81 MG Tab.Chew PO SCH (08:39)
[2021-10-22] MEDS: Isosorbide Mononitrate 60 MG Tab.ER PO SCH (08:39)
[2021-10-22] MEDS: Metoprolol Succinate 50 MG Tab.ER PO SCH (08:39)
[2021-10-22] MEDS: Sodium Chloride 0.9% 10 ML Syringe FLUSH SCH (08:42)
[2021-10-22] MEDS: Insulin Lispro 100 Units/ML 3 ML Vial SUBCUT SCH ×4 (08:47→21:21)
[2021-10-22] MEDS: Timolol Maleate 0.5% Ophth Soln 5 ML Bottle EYERT SCH (08:49)
[2021-10-22] MEDS: Insulin Glarg,Human.Rec.Analog 100 Unit/ML SUBCUT SCH ×2 (08:49→21:19)
[2021-10-22] MEDS: Carboxymethylcellulose Sodium 1% Ophth Gel 0.4 ML UD EYELF SCH ×3 (08:59→21:19)
[2021-10-22] MEDS ORDERED: Levofloxacin/Dextrose 5%-Water 500 MG in Premix Bag 1 BAG IV SCH (09:00)
[2021-10-22] MEDS: Cefepime 1 GM in Sodium Chloride 0.9% 50 ML IV SCH ×2 (10:17→21:32)
[2021-10-22] MEDS: guaiFENesin 600 MG Tab.ER PO SCH ×2 (10:20→20:20)
[2021-10-22] MEDS: Benzonatate 100 MG Cap PO SCH ×3 (10:20→20:20)
[2021-10-22] MEDS: amLODIPine 5 MG Tab PO SCH (20:25)
[2021-10-22] MEDS: Latanoprost 0.005% Ophth Soln 2.5 ML Bottle EYEBOTH SCH (21:19)
[2021-10-23] MEDS: Acetaminophen 325 MG Tab PO PRN (02:15)
[2021-10-23] MEDS: Heparin Sodium 5,000 Units/ML Vial SUBCUT SCH ×3 (05:16→21:18)
[2021-10-23] MEDS: Sodium Chloride 0.9% 10 ML Syringe FLUSH SCH ×3 (05:16→21:31)
[2021-10-23 06:53] LABS: ANION GAP 11.9 mEq/L (7-13)
[2021-10-23] MEDS: Insulin Lispro 100 Units/ML 3 ML Vial SUBCUT SCH ×4 (07:26→21:12)
[2021-10-23] MEDS: Furosemide 40 MG/4 ML VIAL IVPUSH SCH ×2 (08:14→13:45)
[2021-10-23] MEDS: Benzonatate 100 MG Cap PO SCH ×3 (08:54→21:12)
[2021-10-23] MEDS: Aspirin 81 MG Tab.Chew PO SCH (08:54)
[2021-10-23] MEDS: Isosorbide Mononitrate 60 MG Tab.ER PO SCH (08:54)
[2021-10-23] MEDS: Metoprolol Succinate 50 MG Tab.ER PO SCH (08:55)
[2021-10-23] MEDS: Ferrous Sulfate 325 MG Tab PO SCH (08:55)
[2021-10-23] MEDS: guaiFENesin 600 MG Tab.ER PO SCH ×2 (08:55→21:12)
[2021-10-23] MEDS: Timolol Maleate 0.5% Ophth Soln 5 ML Bottle EYERT SCH (08:56)
[2021-10-23] MEDS: Carboxymethylcellulose Sodium 1% Ophth Gel 0.4 ML UD EYELF SCH ×3 (08:56→21:29)
[2021-10-23] MEDS: Insulin Glarg,Human.Rec.Analog 100 Unit/ML SUBCUT SCH ×2 (09:38→21:13)
[2021-10-23] MEDS: Cefepime 1 GM in Sodium Chloride 0.9% 50 ML IV SCH ×2 (11:05→21:31)
[2021-10-23] MEDS: amLODIPine 5 MG Tab PO SCH (21:11)
[2021-10-23] MEDS: Latanoprost 0.005% Ophth Soln 2.5 ML Bottle EYEBOTH SCH (21:23)
[2021-10-23] MEDS ORDERED: Acetaminophen 325 MG Tab PO ONE (23:49)
[2021-10-24] MEDS: Heparin Sodium 5,000 Units/ML Vial SUBCUT SCH ×3 (06:08→22:22)
[2021-10-24 07:00] LABS: ANION GAP 11.8 mEq/L (7-13)
[2021-10-24] MEDS: Insulin Lispro 100 Units/ML 3 ML Vial SUBCUT SCH ×4 (07:56→20:34)
[2021-10-24] MEDS: Carboxymethylcellulose Sodium 1% Ophth Gel 0.4 ML UD EYELF SCH ×3 (08:14→20:33)
[2021-10-24] MEDS: Isosorbide Mononitrate 60 MG Tab.ER PO SCH (08:14)
[2021-10-24] MEDS: guaiFENesin 600 MG Tab.ER PO SCH ×2 (08:14→20:33)
[2021-10-24] MEDS: Benzonatate 100 MG Cap PO SCH ×3 (08:14→20:38)
[2021-10-24] MEDS: Ferrous Sulfate 325 MG Tab PO SCH (08:15)
[2021-10-24] MEDS: Metoprolol Succinate 50 MG Tab.ER PO SCH (08:15)
[2021-10-24] MEDS: Scopolamine 1.5 MG Transdermal Patch TRDERM SCH (08:15)
[2021-10-24] MEDS: Aspirin 81 MG Tab.Chew PO SCH (08:15)
[2021-10-24] MEDS: Sodium Chloride 0.9% 10 ML Syringe FLUSH SCH ×2 (08:20→20:33)
[2021-10-24] MEDS: Furosemide 40 MG/4 ML VIAL IVPUSH SCH ×2 (08:21→13:46)
[2021-10-24] MEDS: Timolol Maleate 0.5% Ophth Soln 5 ML Bottle EYERT SCH (08:24)
[2021-10-24] MEDS: Insulin Glarg,Human.Rec.Analog 100 Unit/ML SUBCUT SCH ×3 (08:24→20:36)
[2021-10-24] MEDS ORDERED: Sodium Chloride 7% 4 ML Neb Soln INH ONE (09:02)
[2021-10-24] MEDS: Cefepime 1 GM in Sodium Chloride 0.9% 50 ML IV SCH ×2 (10:24→22:22)
[2021-10-24] MEDS: Acetaminophen 325 MG Tab PO PRN ×2 (13:57→20:53)
[2021-10-24] MEDS: amLODIPine 5 MG Tab PO SCH (20:32)
[2021-10-24] MEDS: Latanoprost 0.005% Ophth Soln 2.5 ML Bottle EYEBOTH SCH (20:32)
[2021-10-25 06:50] LABS: ANION GAP 11.9 mEq/L (7-13)
[2021-10-25] MEDS: Acetaminophen 325 MG Tab PO PRN ×2 (06:55→20:40)
[2021-10-25] MEDS: Heparin Sodium 5,000 Units/ML Vial SUBCUT SCH ×3 (06:56→22:10)
[2021-10-25] MEDS: Furosemide 40 MG/4 ML VIAL IVPUSH SCH ×3 (08:01→14:50)
[2021-10-25] MEDS: Insulin Lispro 100 Units/ML 3 ML Vial SUBCUT SCH ×4 (08:15→20:41)
[2021-10-25] MEDS ORDERED: Furosemide 100 MG in Sodium Chloride 0.9% 90 ML IV SCH (09:00)
[2021-10-25] MEDS: Metoprolol Succinate 50 MG Tab.ER PO SCH (09:40)
[2021-10-25] MEDS: Aspirin 81 MG Tab.Chew PO SCH (09:41)
[2021-10-25] MEDS: guaiFENesin 600 MG Tab.ER PO SCH ×2 (09:41→20:39)
[2021-10-25] MEDS: Ferrous Sulfate 325 MG Tab PO SCH (09:41)
[2021-10-25] MEDS: Isosorbide Mononitrate 60 MG Tab.ER PO SCH (09:41)
[2021-10-25] MEDS: Benzonatate 100 MG Cap PO SCH ×3 (09:41→20:39)
[2021-10-25] MEDS: Timolol Maleate 0.5% Ophth Soln 5 ML Bottle EYERT SCH (09:42)
[2021-10-25] MEDS: Carboxymethylcellulose Sodium 1% Ophth Gel 0.4 ML UD EYELF SCH ×3 (09:42→20:39)
[2021-10-25] MEDS: Insulin Glarg,Human.Rec.Analog 100 Unit/ML SUBCUT SCH ×2 (09:42→20:40)
[2021-10-25] MEDS: Cefepime 1 GM in Sodium Chloride 0.9% 50 ML IV SCH ×2 (11:04→22:10)
[2021-10-25] MEDS ORDERED: Melatonin 3 MG Tab PO PRN (11:25)
[2021-10-25] MEDS: Sodium Chloride 0.9% 10 ML Syringe FLUSH SCH ×2 (12:26→20:42)
[2021-10-25] MEDS: amLODIPine 5 MG Tab PO SCH (20:40)
[2021-10-25] MEDS: Latanoprost 0.005% Ophth Soln 2.5 ML Bottle EYEBOTH SCH (20:42)
[2021-10-26] MEDS: Heparin Sodium 5,000 Units/ML Vial SUBCUT SCH ×3 (06:11→21:25)
[2021-10-26 07:25] LABS: ANION GAP 14.9 mEq/L (7-13)
[2021-10-26] MEDS: guaiFENesin 600 MG Tab.ER PO SCH ×2 (09:08→21:26)
[2021-10-26] MEDS: Isosorbide Mononitrate 60 MG Tab.ER PO SCH (09:10)
[2021-10-26] MEDS: Benzonatate 100 MG Cap PO SCH ×3 (09:10→21:27)
[2021-10-26] MEDS: Aspirin 81 MG Tab.Chew PO SCH (09:10)
[2021-10-26] MEDS: Metoprolol Succinate 50 MG Tab.ER PO SCH (09:10)
[2021-10-26] MEDS: Ferrous Sulfate 325 MG Tab PO SCH (09:10)
[2021-10-26] MEDS: Insulin Lispro 100 Units/ML 3 ML Vial SUBCUT SCH ×4 (09:12→21:31)
[2021-10-26] MEDS: Insulin Glarg,Human.Rec.Analog 100 Unit/ML SUBCUT SCH ×2 (09:17→21:30)
[2021-10-26] MEDS: Timolol Maleate 0.5% Ophth Soln 5 ML Bottle EYERT SCH (09:18)
[2021-10-26] MEDS: Sodium Chloride 0.9% 10 ML Syringe FLUSH SCH ×2 (09:20→21:32)
[2021-10-26] MEDS: Carboxymethylcellulose Sodium 1% Ophth Gel 0.4 ML UD EYELF SCH ×3 (09:23→21:50)
[2021-10-26] MEDS: Furosemide 40 MG/4 ML VIAL IVPUSH SCH (10:26)
[2021-10-26] MEDS: Cefepime 1 GM in Sodium Chloride 0.9% 50 ML IV SCH ×2 (11:18→22:04)
[2021-10-26] MEDS ORDERED: Furosemide 20 MG/2 ML VIAL IVPUSH SCH (14:00)
[2021-10-26] MEDS: amLODIPine 5 MG Tab PO SCH (21:25)
[2021-10-26] MEDS: Latanoprost 0.005% Ophth Soln 2.5 ML Bottle EYEBOTH SCH (21:50)
[2021-10-26] MEDS: Acetaminophen 325 MG Tab PO PRN (22:01)
[2021-10-27] MEDS: Heparin Sodium 5,000 Units/ML Vial SUBCUT SCH (06:25)
[2021-10-27 07:02] LABS: ANION GAP 13.8 mEq/L (7-13)
[2021-10-27] MEDS: guaiFENesin 600 MG Tab.ER PO SCH (09:00)
[2021-10-27] MEDS: Isosorbide Mononitrate 60 MG Tab.ER PO SCH (09:00)
[2021-10-27] MEDS: Aspirin 81 MG Tab.Chew PO SCH (09:01)
[2021-10-27] MEDS: Benzonatate 100 MG Cap PO SCH (09:01)
[2021-10-27] MEDS: Metoprolol Succinate 50 MG Tab.ER PO SCH (09:01)
[2021-10-27] MEDS: Timolol Maleate 0.5% Ophth Soln 5 ML Bottle EYERT SCH (09:05)
[2021-10-27] MEDS: Insulin Glarg,Human.Rec.Analog 100 Unit/ML SUBCUT SCH (09:05)
[2021-10-27] MEDS: Carboxymethylcellulose Sodium 1% Ophth Gel 0.4 ML UD EYELF SCH (09:08)
[2021-10-27] MEDS: Sodium Chloride 0.9% 10 ML Syringe FLUSH SCH (09:09)
[2021-10-27] MEDS: Insulin Lispro 100 Units/ML 3 ML Vial SUBCUT SCH (09:11)
[2021-10-27] MEDS: Scopolamine 1.5 MG Transdermal Patch TRDERM SCH (09:13)
[2021-10-27 13:21] VITALS: BP 132/51; PULSE 67
== END 2021-10-27 12:55 | DRG 871 ==
LOC: DL.ED 07:35 → DL.MS 09:55
PROVIDERS: ADMIT Hospitalist; ATTEND Hospitalist
DX: A41.9 Sepsis, unspecified organism (principal); J18.9 Pneumonia, unspecified organism; I21.4 Non-ST elevation (NSTEMI) myocardial infarction; J81.0 Acute pulmonary edema; N39.0 Urinary tract infection, site not specified; J96.01 Acute respiratory failure with hypoxia; N17.9 Acute kidney failure, unspecified; I11.0 Hypertensive heart disease with heart failure; I13.0 Hypertensive heart and chronic kidney disease with heart failure and stage 1 through stage 4 chronic kidney disease, or unspecified chronic kidney disease; E11.9 Type 2 diabetes mellitus without complications; E87.1 Hypo-osmolality and hyponatremia; Z66 Do not resuscitate; Z20.822 Contact with and (suspected) exposure to COVID-19; D64.9 Anemia, unspecified; N18.9 Chronic kidney disease, unspecified; E87.70 Fluid overload, unspecified; E11.22 Type 2 diabetes mellitus with diabetic chronic kidney disease; I25.10 Atherosclerotic heart disease of native coronary artery without angina pectoris; I50.9 Heart failure, unspecified; E11.649 Type 2 diabetes mellitus with hypoglycemia without coma; Z96.659 Presence of unspecified artificial knee joint; E78.00 Pure hypercholesterolemia, unspecified; R32 Unspecified urinary incontinence; M19.90 Unspecified osteoarthritis, unspecified site; E11.42 Type 2 diabetes mellitus with diabetic polyneuropathy; E66.9 Obesity, unspecified; Z85.828 Personal history of other malignant neoplasm of skin; Z90.89 Acquired absence of other organs; Z79.82 Long term (current) use of aspirin; Z87.440 Personal history of urinary (tract) infections; Z79.4 Long term (current) use of insulin; Z79.899 Other long term (current) drug therapy; Z88.8 Allergy status to other drugs, medicaments and biological substances; Z88.5 Allergy status to narcotic agent; Z98.49 Cataract extraction status, unspecified eye; Z90.49 Acquired absence of other specified parts of digestive tract; Z90.710 Acquired absence of both cervix and uterus
CPT/HCPCS: 0241U; 36415; 71045; 80048; 80053; 80202; 81001; 82728; 82947; 83540; 83550; 83605; 83615; 83735; 83880; 84484; 85025; 85045; 85610; 85730; 87040; 87086; 87088; 87186; 87641; 93005; 93010; 96365; 96375; 99285; 99285-25; A9270-GY; J0692; J1644; J1815-GY; J1940; J1956; J2270; J3370; J3490; J7030; J7050; U0002

== ENCOUNTER 2021-11-17 03:29 | Inpatient (IN) | payer MEDICARE, BC, MEDICAID ==
[2021-11-17] MEDS ORDERED: Albuterol/Ipratropium 3.0-0.5 MG/3 ML Neb Soln INH ONE (04:00)
[2021-11-17] MEDS ORDERED: Furosemide 40 MG/4 ML VIAL IV ONE ×2 (04:15→21:30)
[2021-11-17] MEDS ORDERED: Levofloxacin/Dextrose 5%-Water 100 ML IV ONE (05:25)
[2021-11-17] MEDS ORDERED: Albuterol 0.083% 2.5 MG/3 ML Neb Soln INH ONE (05:30)
[2021-11-17] MEDS ORDERED: Heparin Sodium 5,000 Units/ML Vial IV ONE (09:50)
[2021-11-17] MEDS ORDERED: Heparin Sodium/0.45% NaCl 500 ML IV ONE (09:50)
[2021-11-17] MEDS ORDERED: Insulin Lispro 100 Units/ML 3 ML Vial SUBCUT ONE (17:30)
[2021-11-17] MEDS ORDERED: Acetaminophen 500 MG Tab PO ONE (21:31)
[2021-11-18] MEDS ORDERED: Furosemide 40 MG/4 ML VIAL IV ONE ×2 (09:40→20:40)
[2021-11-18] MEDS ORDERED: Heparin Sodium 5,000 Units/ML Vial IV ONE (09:40)
[2021-11-18] MEDS ORDERED: Heparin Sodium/0.45% NaCl 500 ML IV ONE (09:40)
[2021-11-18] MEDS ORDERED: Isosorbide Mononitrate 60 MG Tab.ER PO ONE (14:14)
[2021-11-18] MEDS ORDERED: Metoprolol Succinate 50 MG Tab.ER PO ONE (14:15)
[2021-11-18] MEDS ORDERED: Carboxymethylcellulose Sodium 1% Ophth Gel 0.4 ML UD EYEBOTH ONE ×2 (14:15→20:50)
[2021-11-18] MEDS ORDERED: Latanoprost 0.005% Ophth Soln 2.5 ML Bottle EYEBOTH ONE (14:15)
[2021-11-18] MEDS ORDERED: amLODIPine 5 MG Tab PO ONE (14:15)
[2021-11-18] MEDS ORDERED: Calcium Carbonate/Vitamin D3 1250 MG-5 MCG Tab PO ONE (17:40)
[2021-11-19] MEDS ORDERED: Albuterol/Ipratropium 3.0-0.5 MG/3 ML Neb Soln INH ONE (00:45)
[2021-11-19] MEDS ORDERED: Heparin Sodium/0.45% NaCl 500 ML IV ONE (04:10)
[2021-11-19] MEDS ORDERED: Calcium Carbonate/Vitamin D3 1250 MG-5 MCG Tab PO ONE ×2 (09:45→18:00)
[2021-11-19] MEDS ORDERED: Isosorbide Mononitrate 60 MG Tab.ER PO ONE (09:45)
[2021-11-19] MEDS ORDERED: Aspirin 81 MG Tab.Chew PO ONE (09:45)
[2021-11-19] MEDS ORDERED: amLODIPine 5 MG Tab PO ONE (09:45)
[2021-11-19] MEDS ORDERED: Furosemide 40 MG/4 ML VIAL IV ONE ×2 (09:45→20:23)
[2021-11-19] MEDS ORDERED: Cyanocobalamin (Vitamin B12) 1,000 MCG Tab PO ONE (09:45)
[2021-11-19] MEDS ORDERED: Metoprolol Succinate 50 MG Tab.ER PO ONE (10:44)
[2021-11-19] MEDS ORDERED: Apixaban 5 MG Tab PO ONE ×2 (14:15→20:25)
[2021-11-19] MEDS ORDERED: Melatonin 3 MG Tab PO ONE (20:24)
[2021-11-19] MEDS ORDERED: Acetaminophen 500 MG Tab PO ONE (20:24)
[2021-11-19] MEDS ORDERED: Sodium Chloride 0.9% 10 ML Syringe IV ONE (20:24)
[2021-11-19] MEDS ORDERED: Carboxymethylcellulose Sodium 1% Ophth Gel 0.4 ML UD EYEBOTH ONE (20:24)
[2021-11-20] MEDS ORDERED: Isosorbide Mononitrate 60 MG Tab.ER PO ONE (07:32)
[2021-11-20] MEDS ORDERED: Furosemide 40 MG/4 ML VIAL IV ONE (08:15)
[2021-11-20] MEDS ORDERED: amLODIPine 5 MG Tab PO ONE (08:15)
[2021-11-20] MEDS ORDERED: Aspirin 81 MG Tab.Chew PO ONE (08:15)
[2021-11-20] MEDS ORDERED: Apixaban 5 MG Tab PO ONE ×2 (08:15→21:45)
[2021-11-20] MEDS ORDERED: Cyanocobalamin (Vitamin B12) 1,000 MCG Tab PO ONE (08:22)
[2021-11-20] MEDS ORDERED: Metoprolol Succinate 50 MG Tab.ER PO ONE (08:23)
[2021-11-20] MEDS ORDERED: Carboxymethylcellulose Sodium 1% Ophth Gel 0.4 ML UD EYEBOTH ONE ×3 (08:30→21:45)
[2021-11-20] MEDS ORDERED: Calcium Carbonate/Vitamin D3 1250 MG-5 MCG Tab PO ONE (08:30)
[2021-11-20] MEDS ORDERED: Melatonin 3 MG Tab PO ONE (21:45)
[2021-11-20] MEDS ORDERED: Acetaminophen 500 MG Tab PO ONE (21:45)
[2021-11-21] MEDS ORDERED: Apixaban 5 MG Tab PO ONE ×2 (08:35→19:50)
[2021-11-21] MEDS ORDERED: Isosorbide Mononitrate 60 MG Tab.ER PO ONE (08:40)
[2021-11-21] MEDS ORDERED: amLODIPine 5 MG Tab PO ONE (08:40)
[2021-11-21] MEDS ORDERED: Aspirin 81 MG Tab.Chew PO ONE (08:40)
[2021-11-21] MEDS ORDERED: Calcium Carbonate/Vitamin D3 1250 MG-5 MCG Tab PO ONE ×2 (08:45→17:01)
[2021-11-21] MEDS ORDERED: Furosemide 40 MG Tab PO ONE (08:55)
[2021-11-21] MEDS ORDERED: Furosemide 20 MG Tab PO ONE (09:00)
[2021-11-21] MEDS ORDERED: Carboxymethylcellulose Sodium 1% Ophth Gel 0.4 ML UD EYEBOTH ONE ×2 (13:50→19:50)
[2021-11-21] MEDS ORDERED: Acetaminophen 500 MG Tab PO ONE (19:50)
[2021-11-21] MEDS ORDERED: Melatonin 3 MG Tab PO ONE (19:50)
[2021-11-21] MEDS ORDERED: Sodium Chloride 0.9% 10 ML Syringe IV ONE (19:50)
[2021-11-22] MEDS ORDERED: Carboxymethylcellulose Sodium 1% Ophth Gel 0.4 ML UD EYEBOTH ONE ×3 (08:15→21:15)
[2021-11-22] MEDS ORDERED: Calcium Carbonate/Vitamin D3 1250 MG-5 MCG Tab PO ONE ×2 (08:15→16:30)
[2021-11-22] MEDS ORDERED: Aspirin 81 MG Tab.Chew PO ONE (08:15)
[2021-11-22] MEDS ORDERED: Isosorbide Mononitrate 60 MG Tab.ER PO ONE (08:15)
[2021-11-22] MEDS ORDERED: Apixaban 5 MG Tab PO ONE ×2 (08:15→21:11)
[2021-11-22] MEDS ORDERED: amLODIPine 5 MG Tab PO ONE (08:15)
[2021-11-22] MEDS ORDERED: Metoprolol Tartrate 50 MG Tab PO ONE (08:20)
[2021-11-22] MEDS ORDERED: Furosemide 40 MG Tab PO ONE (08:20)
[2021-11-22] MEDS ORDERED: Cyanocobalamin (Vitamin B12) 1,000 MCG Tab PO ONE (08:25)
[2021-11-22] MEDS ORDERED: Furosemide 20 MG Tab PO ONE (08:40)
[2021-11-22] MEDS ORDERED: Cholecalciferol (Vitamin D3) 25 MCG Tab PO ONE (12:25)
[2021-11-22] MEDS ORDERED: Melatonin 3 MG Tab PO ONE (21:11)
[2021-11-22] MEDS ORDERED: Sodium Chloride 0.9% 10 ML Syringe IV ONE (21:12)
[2021-11-22] MEDS ORDERED: Acetaminophen 500 MG Tab PO ONE (21:12)
[2021-11-23] MEDS ORDERED: Melatonin 3 MG Tab PO ONE (00:30)
[2021-11-23] MEDS ORDERED: Cyanocobalamin (Vitamin B12) 1,000 MCG Tab PO ONE (08:08)
[2021-11-23] MEDS ORDERED: Isosorbide Mononitrate 60 MG Tab.ER PO ONE (08:09)
[2021-11-23] MEDS ORDERED: Cholecalciferol (Vitamin D3) 25 MCG Tab PO ONE (08:10)
[2021-11-23] MEDS ORDERED: Aspirin 81 MG Tab.Chew PO ONE (08:10)
[2021-11-23] MEDS ORDERED: Metoprolol Succinate 50 MG Tab.ER PO ONE (08:10)
[2021-11-23] MEDS ORDERED: amLODIPine 5 MG Tab PO ONE (08:10)
[2021-11-23] MEDS ORDERED: Furosemide 40 MG Tab PO ONE (08:10)
[2021-11-23] MEDS ORDERED: Calcium Carbonate/Vitamin D3 1250 MG-5 MCG Tab PO ONE ×2 (08:11→17:10)
[2021-11-23] MEDS ORDERED: Carboxymethylcellulose Sodium 1% Ophth Gel 0.4 ML UD EYEBOTH ONE ×3 (08:45→21:24)
[2021-11-23] MEDS ORDERED: Apixaban 5 MG Tab PO ONE ×2 (14:00→22:02)
[2021-11-23] MEDS ORDERED: Acetaminophen 500 MG Tab PO ONE (22:00)
[2021-11-24] MEDS ORDERED: Isosorbide Mononitrate 60 MG Tab.ER PO ONE (05:15)
[2021-11-24] MEDS ORDERED: Acetaminophen 500 MG Tab PO ONE (05:15)
[2021-11-24] MEDS ORDERED: Furosemide 40 MG Tab PO ONE (07:50)
[2021-11-24] MEDS ORDERED: amLODIPine 5 MG Tab PO ONE (07:50)
[2021-11-24] MEDS ORDERED: Aspirin 81 MG Tab.Chew PO ONE (07:50)
[2021-11-24] MEDS ORDERED: Cholecalciferol (Vitamin D3) 25 MCG Tab PO ONE (07:50)
[2021-11-24] MEDS ORDERED: Cyanocobalamin (Vitamin B12) 1,000 MCG Tab PO ONE (07:50)
[2021-11-24] MEDS ORDERED: Metoprolol Succinate 50 MG Tab.ER PO ONE (07:50)
[2021-11-24] MEDS ORDERED: Carboxymethylcellulose Sodium 1% Ophth Gel 0.4 ML UD EYEBOTH ONE (07:50)
[2021-11-24] MEDS ORDERED: Calcium Carbonate/Vitamin D3 1250 MG-5 MCG Tab PO ONE (07:50)
[2021-11-24] MEDS ORDERED: Apixaban 5 MG Tab PO ONE (07:50)
[2021-12-12 16:48] LABS: ANION GAP 19.6 mEq/L (7-13); CHLORIDE,CL 96 mmol/L (98-107); SODIUM,NA 132 mmol/L (136-145)
[2021-12-12 16:49] LABS: ESTIMATED GFR 12 mL/min (>=60)
[2021-12-12 16:57] LABS: PTT,PARTIAL THROMBOPLSTIN TIME 24.7 SEC (22.0-34.0)
[2021-12-15 11:44] LABS: ANION GAP 15.2 mEq/L (7-13); CHLORIDE,CL 98 mmol/L (98-107); ESTIMATED GFR 16 mL/min (>=60); SODIUM,NA 134 mmol/L (136-145)
[2021-12-15 14:30] LABS: ANION GAP 12.9 mEq/L (7-13); CHLORIDE,CL 97 mmol/L (98-107); ESTIMATED GFR 18 mL/min (>=60); SODIUM,NA 134 mmol/L (136-145)
[2021-12-15 16:07] LABS: ANION GAP 12.9 mEq/L (7-13); CHLORIDE,CL 98 mmol/L (98-107); ESTIMATED GFR 19 mL/min (>=60); SODIUM,NA 135 mmol/L (136-145)
[2021-12-16 14:07] LABS: ANION GAP 11.7 mEq/L (7-13); CHLORIDE,CL 98 mmol/L (98-107); ESTIMATED GFR 21 mL/min (>=60); SODIUM,NA 137 mmol/L (136-145)
[2021-12-16 16:21] LABS: CHLORIDE,CL 98 mmol/L (98-107); ESTIMATED GFR 24 mL/min (>=60); SODIUM,NA 137 mmol/L (136-145)
[2021-12-19 16:03] LABS: ANION GAP 12.2 mEq/L (7-13); CHLORIDE,CL 97 mmol/L (98-107); ESTIMATED GFR 24 mL/min (>=60); SODIUM,NA 134 mmol/L (136-145)
== END 2021-11-24 11:00 | disposition home or self-care (01) | DRG 299 ==
LOC: DL.ED 03:29 → DL.ZCENSUS 08:15 → DL.ED 08:30
PROVIDERS: ADMIT Internal Medicine; ATTEND Internal Medicine
DX: I82.432 Acute embolism and thrombosis of left popliteal vein (principal); I26.99 Other pulmonary embolism without acute cor pulmonale; J96.01 Acute respiratory failure with hypoxia; I50.33 Acute on chronic diastolic (congestive) heart failure; N18.4 Chronic kidney disease, stage 4 (severe); L89.159 Pressure ulcer of sacral region, unspecified stage; H91.90 Unspecified hearing loss, unspecified ear; I50.9 Heart failure, unspecified; N39.0 Urinary tract infection, site not specified; I25.10 Atherosclerotic heart disease of native coronary artery without angina pectoris; E55.9 Vitamin D deficiency, unspecified; Z87.440 Personal history of urinary (tract) infections; Z28.82 Immunization not carried out because of caregiver refusal; R79.1 Abnormal coagulation profile; Z66 Do not resuscitate; Z20.822 Contact with and (suspected) exposure to COVID-19
CPT/HCPCS: 71045; 80053; 81001; 81003; 82150; 83605; 83735; 83880; 84484; 85025; 85379; 85610; 85730; 87040 ×2; 87086; 93005; 93010; 94640; 99285; J1940; J1956; U0002; 36415; 80048; 82306; 82728; 82947; 83540; 83550; 84100; 85027; 87070; 93970; 99223; 99233; 99238; A9270-GY; J1644; J1815-GY; J3490; J7613-GY; J7620-GY

== ENCOUNTER 2021-12-07 12:48 | Emergency (ER) | payer MEDICARE, BC ==
[2021-12-07] MEDS ORDERED: Sodium Chloride 0.9% 500 ML IV ONE (14:02)
[2021-12-07 15:06] LABS: ANION GAP 17.3 mEq/L (7-13)
[2021-12-07 15:13] LABS: PTT,PARTIAL THROMBOPLSTIN TIME 28.7 SEC (22.0-34.0)
[2021-12-07] MEDS ORDERED: cefTRIAXone 1 GM in Sodium Chloride 0.9% 50 ML IV ONE (15:34)
[2021-12-07] MEDS ORDERED: Pantoprazole 40 MG Vial IVPUSH ONE (15:45)
[2021-12-07] MEDS ORDERED: Pantoprazole 40 MG Vial ONE (15:46)
[2021-12-07 16:07] VITALS: PULSE 70
[2021-12-07 16:37] VITALS: BP 91/42
== END 2021-12-07 16:50 ==
LOC: DL.ED 12:48
DX: I95.9 Hypotension, unspecified (principal); R79.89 Other specified abnormal findings of blood chemistry; N39.0 Urinary tract infection, site not specified; R94.6 Abnormal results of thyroid function studies; I13.0 Hypertensive heart and chronic kidney disease with heart failure and stage 1 through stage 4 chronic kidney disease, or unspecified chronic kidney disease; E11.22 Type 2 diabetes mellitus with diabetic chronic kidney disease; N18.30 Chronic kidney disease, stage 3 unspecified; I50.9 Heart failure, unspecified; D63.1 Anemia in chronic kidney disease; I44.0 Atrioventricular block, first degree; I44.7 Left bundle-branch block, unspecified; M19.90 Unspecified osteoarthritis, unspecified site; E11.40 Type 2 diabetes mellitus with diabetic neuropathy, unspecified; E66.9 Obesity, unspecified; Z88.8 Allergy status to other drugs, medicaments and biological substances; Z88.5 Allergy status to narcotic agent; Z79.82 Long term (current) use of aspirin; Z79.4 Long term (current) use of insulin; Z79.899 Other long term (current) drug therapy; Z20.822 Contact with and (suspected) exposure to COVID-19
CPT/HCPCS: 36415; 36430; 71045; 80053; 81001; 82140; 82150; 82728; 82947; 83605; 83690; 83735; 83880; 84145; 84443; 84484; 85025; 85045; 85610; 85730; 86140; 86850; 86900; 86901; 86920; 86922; 87040; 87086; 87088; 87186; 93005; 93010; 96361; 96365; 96375; 99285; C1758; C9113; J0696; J7030; P9016; U0002